=== PATIENT | female | born 1980 | race African-American/Black ===

== ENCOUNTER 2016-05-20 22:51 | Emergency (ER) | payer BC ==
[2016-05-21 00:59] LABS: ABSOLUTE EOSINOPHILS # (AUTO) 0.1 10^3/uL (0.0-0.6); ABSOLUTE LYMPHOCYTES (AUTO) 1.4 10^3/uL (0.5-4.7); ABSOLUTE MONOCYTES (AUTO) 0.6 10^3/uL (0.1-1.4); BASOPHILS % (AUTO) 0.7 % (0-2); EOSINOPHILS % (AUTO) 1.5 % (0-6); HEMOGLOBIN 13.3 g/dL (12.0-15.5); HGB HCT DIFFERENCE -0.1; LYMPHOCYTES % (AUTO) 22.4 % (13-45); MEAN CORPUSCULAR HEMOGLOBIN 30.8 pg (27.0-33.4); MEAN CORPUSCULAR HGB CONC 33.3 g/dL (32.0-36.0); MEAN CORPUSCULAR VOLUME 92 fl (80-97); MONOCYTES % (AUTO) 10.5 % (3-13); RED BLOOD COUNT 4.33 10^6/uL (3.72-5.28); RED CELL DISTRIBUTION WIDTH 12.8 % (11.5-14.0); SEGMENTED NEUTROPHILS % (AUTO) 64.9 % (42-78); WHITE BLOOD COUNT 6.1 10^3/uL (4.0-10.5)
[2016-05-21] MEDS ORDERED: ONDANSETRON 4 MG TAB.RAPDIS SL ONE (01:10)
--- NOTE | 2016-05-21 01:11 | ER Document Report ---
ED General - General Chief Complaint: Abdominal Pain Stated Complaint: ABDOMINAL PAIN Time seen by provider: 01:11 Mode of Arrival: Ambulatory Information source: Patient TRAVEL OUTSIDE OF THE [place] IN LAST 30 DAYS: No - HPI Patient complains to provider of: abdominal pain, back pain, nausea Onset: Just prior to arrival Onset/Duration: Sudden Quality of pain: Achy, Cramping Severity: Moderate Pain Level: 3 Associated symptoms: Body/muscle aches, Nonproductive cough, Nausea Exacerbated by: Denies Relieved by: Denies Similar symptoms previously: No Recently seen / treated by doctor: No Notes: Patient is a 36-year-old female presenting to the emergency room complaining of crampy abdominal pain, back pain, nausea, symptoms worsened after eating, she reports she's had multiple bowel movements throughout the day which were well- formed and not watery in nature, she is complaining of some pain in her right lower back shooting down her leg at times, dizziness, nasal congestion, nonproductive cough, she denies a fever, no pain or burning with urination but reports increased urinary frequency, she reports her was sick over the last week with similar symptoms - Related Data Allergies/Adverse Reactions: latex [Latex] Allergy (Severe, Verified 03/05/15 15:17) Hives hydrochlorothiazide [Hydrochlorothiazide] Allergy (Unknown, Verified 03/05/15 15 :17) Hives amoxicillin [Amoxicillin] Allergy (Verified 03/05/15 15:17) lisinopril [Lisinopril] Adverse Reaction (Unknown, Verified 03/05/15 15:17) Hives Past Medical History - General Information source: Patient - Social History Smoking Status: Never Smoker Family History: CAD, DM, Hyperlipidemia, Hypertension, Other - lupus Patient has suicidal ideation: No Patient has homicidal ideation: No - Past Medical History Cardiac Medical History: Reports: Hx Hypertension Denies: Hx Coronary Artery Disease, Hx Heart Attack Pulmonary Medical History: Reports: Hx Pneumonia Denies: Hx Asthma, Hx Bronchitis, Hx COPD Neurological Medical History: Reports: Hx Migraine. Denies: Hx Cerebrovascular Accident, Hx Seizures Endocrine Medical History: Denies: Hx Diabetes Mellitus Type 2, Hx Hypothyroidism Renal/ Medical History: Denies: Hx End Stage Renal Disease, Hx Peritoneal Dialysis, Hx Renal Insufficiency GI Medical History: Reports: Hx Gastritis, Hx Gastroesophageal Reflux Disease Musculoskeltal Medical History: Reports Hx Arthritis, Reports Hx Fibromyalgia Psychiatric Medical History: Reports: Hx Anxiety Past Surgical History: Reports: Hx Gynecologic Surgery - bilateral oophorectomy ; hysterectomy., Hx Hysterectomy - Immunizations Immunizations up to date: Yes Hx Diphtheria, Pertussis, Tetanus Vaccination: Yes Review of Systems - Review of Systems Constitutional: See HPI EENT: See HPI Cardiovascular: No symptoms reported Respiratory: See HPI Gastrointestinal: See HPI Genitourinary: See HPI Female Genitourinary: No symptoms reported Musculoskeletal: See HPI Skin: No symptoms reported Hematologic/Lymphatic: No symptoms reported Neurological/Psychological: No symptoms reported -: Yes All other systems reviewed and negative Physical Exam - Vital signs Interpretation: Normal - General General appearance: Appears well, Alert - HEENT Head: Normocephalic, Atraumatic Eyes: Normal Pupils: PERRL - Respiratory Respiratory status: No respiratory distress Chest status: Nontender Breath sounds: Normal Chest palpation: Normal - Cardiovascular Rhythm: Regular Heart sounds: Normal auscultation Murmur: No - Abdominal Inspection: Normal Distension: No distension Bowel sounds: Normal Tenderness: Tender - Mild diffuse Organomegaly: No organomegaly - Back Back: Tender - Right lumbar paraspinal muscle tenderness, negative straight leg raise - Extremities General upper extremity: Normal inspection, Nontender, Normal color, Normal ROM , Normal temperature General lower extremity: Normal inspection, Nontender, Normal color, Normal ROM , Normal temperature, Normal weight bearing. No: Clinton's sign - Neurological Neuro grossly intact: Yes Cognition: Normal Orientation: AAOx4 [place] Coma Scale Eye Opening: Spontaneous [place] Coma Scale Verbal: Oriented [place] Coma Scale Motor: Obeys Commands Oskar Coma Scale Total: 15 Speech: Normal Motor strength normal: LUE, RUE, LLE, RLE Sensory: Normal - Psychological Associated symptoms: Normal affect, Normal mood - Skin Skin Temperature: Warm Skin Moisture: Dry Skin Color: Normal Course - Re-evaluation Re-evalutation: 05/21/16 03:19 Patient with symptoms consistent with viral illness, ill with similar symptoms recently, she was given prescriptions for treatment of her symptoms and advised for supportive care and follow-up with her primary care provider, patient acknowledges understanding and agreement with this plan - Laboratory Result Diagrams: 05/21/16 00:37 05/21/16 00:37 Laboratory results interpreted by me: 05/21/16 00:52 Urine Blood MODERATE H Discharge - Discharge Clinical Impression: Nausea, Viral illness Abdominal pain Qualifiers: Abdominal location: generalized Qualified Code(s): R10.84 - Generalized abdominal pain Condition: Stable Disposition: HOME, SELF-CARE Instructions: Abdominal Pain ([facility]), Antinausea Medication ([facility]), Viral Syndrome ([facility]), Cough Suppressant & Expectorant Medications Additional Instructions: Follow up with your primary care provider in one to 2 days. Return to the emergency room immediately if symptoms worsen or any additional concerns. Prescriptions: Ondansetron [Zofran Odt 4 mg Tablet] 1 - 2 tab PO Q4H #20 tab.rapdis Phenylephrine HCl/Cod/Prometh [Promethazine Vc-Codeine Syrup] 5 ml PO Q6 #240 syrup
[2016-05-21 01:13] LABS: APPEARANCE,URINE CLEAR; BILIRUBIN,URINE NEGATIVE (NEGATIVE); GLUCOSE, URINE NEGATIVE (NEGATIVE); KETONES,URINE NEGATIVE (NEGATIVE); LEUKOCYTE ESTERASE,URINE NEGATIVE (NEGATIVE); NITRITE,URINE NEGATIVE (NEGATIVE); PROTEIN,URINE NEGATIVE (NEGATIVE); URINE SPECIFIC GRAVITY 1.019; UROBILINOGEN,URINE NEGATIVE mg/dL (<2.0)
[2016-05-21 01:20] LABS: ALANINE AMINOTRANSFERASE 24 U/L (9-52); ALBUMIN 4.5 g/dL (3.5-5.0); ALKALINE PHOSPHATASE 78 U/L (38-126); ANION GAP 13 (5-19); ASPARTATE AMINO TRANSFERASE 20 U/L (14-36); BILIRUBIN,TOTAL 0.5 mg/dL (0.2-1.3); BLOOD UREA NITROGEN 12 mg/dL (7-20); CALCIUM 9.3 mg/dL (8.4-10.2); CARBON DIOXIDE 27 mmol/L (22-30); CHLORIDE 102 mmol/L (98-107); CREATININE RESULT 0.89 mg/dL (0.52-1.25); GLUCOSE 90 mg/dL (75-110); LIPASE 51.5 U/L (23-300); POTASSIUM 4.1 mmol/L (3.6-5.0); SODIUM 141.6 mmol/L (137-145); TOTAL PROTEIN 7.9 g/dL (6.3-8.2)
[2016-05-21] MEDS ORDERED: ONDANSETRON ODT 4 MG TAB (6 TAB/DSPK) PO PRN (02:20)
[2016-05-21] MEDS ORDERED: BENZONATATE 100 MG CAPSULE PO ONE (02:20)
[2016-05-21 04:27] VITALS: BP 156/102
== END 2016-05-21 04:27 | disposition home or self-care (01) ==
LOC: ER 22:51
DX: R11.0 Nausea (principal); R10.84 Generalized abdominal pain; B34.9 Viral infection, unspecified; M54.9 Dorsalgia, unspecified; R42 Dizziness and giddiness; R09.81 Nasal congestion; R05 Cough; I10 Essential (primary) hypertension; Z91.040 Latex allergy status; Z88.0 Allergy status to penicillin; Z90.710 Acquired absence of both cervix and uterus
CPT/HCPCS: 99284; 36415; 83690; 84703; 85025; 80053; 81001; S0119

== ENCOUNTER 2016-06-30 21:34 | Emergency (ER) | payer SELFPAY ==
[2016-06-30 21:47] VITALS: BP 152/120
--- NOTE | 2016-06-30 21:52 | ER Document Report ---
ED Medical Screen (RME) - General Stated Complaint: NAUSEA/HEADACHE Mode of Arrival: Ambulatory Information source: Patient Notes: Pt presents to the ED for c/o NAIK, Ear pain, abdominal pain, low back pain. Reports taken multiple OTC meds without relief of symptoms. Denies f/ v/d but reports nausea. Just got over the flu. I have greeted and performed a rapid initial assessment of this patient. A comprehensive ED assessment and evaluation of the patient, analysis of test results and completion of the medical decision making process will be conducted by additional ED providers. TRAVEL OUTSIDE OF THE [place] IN LAST 30 DAYS: No - Related Data Allergies/Adverse Reactions: latex [Latex] Allergy (Severe, Verified 03/05/15 15:17) Hives hydrochlorothiazide [Hydrochlorothiazide] Allergy (Unknown, Verified 03/05/15 15 :17) Hives amoxicillin [Amoxicillin] Allergy (Verified 03/05/15 15:17) lisinopril [Lisinopril] Adverse Reaction (Unknown, Verified 03/05/15 15:17) Hives Past Medical History - Past Medical History Cardiac Medical History: Reports: Hx Hypertension Denies: Hx Coronary Artery Disease, Hx Heart Attack Pulmonary Medical History: Reports: Hx Pneumonia Denies: Hx Asthma, Hx Bronchitis, Hx COPD Neurological Medical History: Reports: Hx Migraine. Denies: Hx Cerebrovascular Accident, Hx Seizures Endocrine Medical History: Denies: Hx Diabetes Mellitus Type 2, Hx Hypothyroidism Renal/ Medical History: Denies: Hx End Stage Renal Disease, Hx Peritoneal Dialysis, Hx Renal Insufficiency GI Medical History: Reports: Hx Gastritis, Hx Gastroesophageal Reflux Disease Musculoskeltal Medical History: Reports Hx Arthritis, Reports Hx Fibromyalgia Psychiatric Medical History: Reports: Hx Anxiety Past Surgical History: Reports: Hx Gynecologic Surgery - bilateral oophorectomy ; hysterectomy., Hx Hysterectomy - Immunizations Immunizations up to date: Yes Hx Diphtheria, Pertussis, Tetanus Vaccination: Yes Physical Exam - Vital signs Vitals: Temp Pulse Resp BP Pulse Ox 97.8 F 76 20 152/120 H 100 06/30/16 21:46 06/30/16 21:46 06/30/16 21:46 06/30/16 21:46 06/30/16 21:46 Course - Vital Signs Vital signs: Temp Pulse Resp BP Pulse Ox 97.8 F 76 20 152/120 H 100 06/30/16 21:46 06/30/16 21:46 06/30/16 21:46 06/30/16 21:46 06/30/16 21:46
--- NOTE | 2016-06-30 22:29 | ER Document Report ---
ED General - General Chief Complaint: Headache >24 hrs old Stated Complaint: NAUSEA/HEADACHE Mode of Arrival: Ambulatory Notes: The patient is a 36-year-old female, past medical history sarcoidosis, fibromyalgia, presents with 3 days of sinus congestion and frontal frontal headache. She tried Tylenol and Motrin without much relief. She is also having intermittent abdominal cramping and has seen her [facility] for this. She denies nausea, vomiting, neck stiffness, fevers, difficulty swallowing, rash, urinary symptoms, diarrhea or constipation. TRAVEL OUTSIDE OF THE [place] IN LAST 30 DAYS: No - Related Data Allergies/Adverse Reactions: latex [Latex] Allergy (Severe, Verified 03/05/15 15:17) Hives hydrochlorothiazide [Hydrochlorothiazide] Allergy (Unknown, Verified 03/05/15 15 :17) Hives amlodipine [From Norvasc] Allergy (Verified 06/30/16 22:39) amoxicillin [Amoxicillin] Allergy (Verified 03/05/15 15:17) lisinopril [Lisinopril] Adverse Reaction (Unknown, Verified 03/05/15 15:17) Hives Past Medical History - General Information source: Patient - Social History Smoking Status: Never Smoker Chew tobacco use (# tins/day): No Frequency of alcohol use: None Drug Abuse: None Family History: CAD, DM, Hyperlipidemia, Hypertension, Other - lupus Patient has suicidal ideation: No Patient has homicidal ideation: No - Past Medical History Cardiac Medical History: Reports: Hx Hypertension Denies: Hx Coronary Artery Disease, Hx Heart Attack Pulmonary Medical History: Reports: Hx Pneumonia Denies: Hx Asthma, Hx Bronchitis, Hx COPD Neurological Medical History: Reports: Hx Migraine. Denies: Hx Cerebrovascular Accident, Hx Seizures Endocrine Medical History: Denies: Hx Diabetes Mellitus Type 2, Hx Hypothyroidism Renal/ Medical History: Denies: Hx End Stage Renal Disease, Hx Peritoneal Dialysis, Hx Renal Insufficiency GI Medical History: Reports: Hx Gastritis, Hx Gastroesophageal Reflux Disease Musculoskeltal Medical History: Reports Hx Arthritis, Reports Hx Fibromyalgia Psychiatric Medical History: Reports: Hx Anxiety Past Surgical History: Reports: Hx Gynecologic Surgery - bilateral oophorectomy ; hysterectomy., Hx Hysterectomy - Immunizations Immunizations up to date: Yes Hx Diphtheria, Pertussis, Tetanus Vaccination: Yes Review of Systems - Review of Systems Notes: REVIEW OF SYSTEMS: CONSTITUTIONAL: -fevers, -chills EENT: -eye pain, -difficulty swallowing, +nasal congestion CARDIOVASCULAR:-chest pain, -syncope. RESPIRATORY: -cough, -SOB GASTROINTESTINAL: -abdominal pain, -nausea, -vomiting, -diarrhea GENITOURINARY: -dysuria, -hematuria MUSCULOSKELETAL: -back pain, -neck pain SKIN: -rash or skin lesions. HEMATOLOGIC: -easy bruising or bleeding. LYMPHATIC: -swollen, enlarged glands. NEUROLOGICAL: -altered mental status or loss of consciousness, +headache, - neurologic symptoms PSYCHIATRIC: -anxiety, -depression. ALL OTHER SYSTEMS REVIEWED AND NEGATIVE. Physical Exam - Vital signs Vitals: Temp Pulse Resp BP Pulse Ox 97.8 F 76 20 152/120 H 100 06/30/16 21:46 06/30/16 21:46 06/30/16 21:46 06/30/16 21:46 06/30/16 21:46 - Notes Notes: PHYSICAL EXAMINATION: GENERAL: Well-appearing, well-nourished and in no acute distress. HEAD: Atraumatic, normocephalic. EYES: Pupils equal round and reactive to light, extraocular movements intact, sclera anicteric, conjunctiva are normal. ENT: nasal turbinate swelling, frontal sinus tenderness, nares patent, oropharynx clear without exudates. Moist mucous membranes. NECK: Normal range of motion, supple without lymphadenopathy LUNGS: Breath sounds clear to auscultation bilaterally and equal. No wheezes rales or rhonchi. HEART: Regular rate and rhythm without murmurs ABDOMEN: Soft, nontender, normoactive bowel sounds. No guarding, no rebound. No masses appreciated. EXTREMITIES: Normal range of motion, no pitting or edema. No cyanosis. NEUROLOGICAL: Cranial nerves grossly intact. Normal speech, normal gait. Normal sensory, motor, and reflex exams. PSYCH: Normal mood, normal affect. SKIN: Warm, Dry, normal turgor, no rashes or lesions noted. Course - Re-evaluation Re-evalutation: Patient appears well. Symptoms consistent with sinus congestion causing a dull frontal headache. Abdominal exam is completely nontender and labs and urine are unremarkable. Abdominal pain is chronic in nature. Struck to patient about treatment with Flonase, Claritin and sinus rinses. Also told her to follow-up with her manager code for further evaluation and treatment. She says she will take her evening dose of clonidine when she gets home. - Vital Signs Vital signs: Temp Pulse Resp BP Pulse Ox 97.8 F 76 20 152/120 H 100 06/30/16 21:46 06/30/16 21:46 06/30/16 21:46 06/30/16 21:46 06/30/16 21:46 - Laboratory Result Diagrams: 06/30/16 23:10 06/30/16 22:01 Laboratory results interpreted by me: 06/30/16 22:01 Carbon Dioxide 32 H Discharge - Discharge Clinical Impression: Sinus congestion, Frontal headache Condition: Good Disposition: HOME, SELF-CARE Additional Instructions: HEADACHE: The physician does not feel that the headache you are experiencing has a serious underlying cause. Most headaches are due to emotional stress, with resultant muscle tension (tension headache). Occasionally, headaches are secondary to changes in the blood vessels of the scalp (vascular headache and migraine headache). Sometimes, a headache is the first symptom of another developing illness, such as a viral infection. You have no evidence of stroke, bleeding, meningitis, or other serious cause of your headache. The treatment of headaches varies with the severity and cause of the pain. Not all headaches need pain shots. In fact, there is evidence that using narcotics for headaches may make them worse in the long run. The physician will determine the therapy that's in your best interest. If you develop a fever, if the headache is different from any you've previously experienced, or if the headache progressively worsens, then call your physician at once or go to the emergency room. FOLLOW-UP CARE: If you have been referred to a physician for follow-up care, call the physician s office for an appointment as you were instructed or within the next two days. If you experience worsening or a significant change in your symptoms, notify the physician immediately or return to the Emergency Department at any time for re-evaluation. Sinusitis You have sinusitis, an infection of the sinus cavities of the face. The sinuses are air-filled chambers which open into the inside of the nose. Bacteria and pus fill a sinus, causing pain, drainage, and fever. Sinusitis is treated with antibiotics. Often, expectorants (to thin the sinus mucous) or decongestants (to reduce swelling) are prescribed as well. Healing requires seven to 10 days. Avoid chemical fumes, pollens, dusts, and smoke (especially cigarette smoke ). Keep the air humidified in your bedroom and work area and take plenty of liquids by mouth. This condition can be serious if the infection spreads. If your symptoms worsen, or if you develop severe headache, high fever, stiff neck, or a rash, you must call the doctor or return for re-evaluation. Prescriptions: Fluticasone Propionate [Flonase Nasal [place] 50 Mcg/[place] 16 gm] 2 sprays NASL Q12 #1 inhaler Forms: Elevated Blood Pressure
[2016-06-30 22:38] LABS: APPEARANCE,URINE CLEAR; BILIRUBIN,URINE NEGATIVE (NEGATIVE); GLUCOSE, URINE NEGATIVE (NEGATIVE); KETONES,URINE NEGATIVE (NEGATIVE); LEUKOCYTE ESTERASE,URINE NEGATIVE (NEGATIVE); NITRITE,URINE NEGATIVE (NEGATIVE); PROTEIN,URINE NEGATIVE (NEGATIVE); URINE SPECIFIC GRAVITY 1.013; UROBILINOGEN,URINE NEGATIVE mg/dL (<2.0)
[2016-06-30] MEDS ORDERED: IBUPROFEN 600 MG TABLET PO ONE (22:42)
[2016-06-30 22:58] LABS: ALANINE AMINOTRANSFERASE 37 U/L (9-52); ALBUMIN 4.6 g/dL (3.5-5.0); ALKALINE PHOSPHATASE 88 U/L (38-126); ANION GAP 11 (5-19); ASPARTATE AMINO TRANSFERASE 21 U/L (14-36); BILIRUBIN,TOTAL 0.6 mg/dL (0.2-1.3); BLOOD UREA NITROGEN 16 mg/dL (7-20); CALCIUM 9.6 mg/dL (8.4-10.2); CARBON DIOXIDE 32 mmol/L (22-30); CHLORIDE 99 mmol/L (98-107); CREATININE RESULT 0.83 mg/dL (0.52-1.25); GLUCOSE 98 mg/dL (75-110); POTASSIUM 3.8 mmol/L (3.6-5.0); SODIUM 141.9 mmol/L (137-145); TOTAL PROTEIN 8.2 g/dL (6.3-8.2)
[2016-06-30 23:23] LABS: ABSOLUTE BASOPHILS # (AUTO) 0.1 10^3/uL (0.0-0.2); ABSOLUTE EOSINOPHILS # (AUTO) 0.1 10^3/uL (0.0-0.6); ABSOLUTE LYMPHOCYTES (AUTO) 1.8 10^3/uL (0.5-4.7); ABSOLUTE MONOCYTES (AUTO) 0.6 10^3/uL (0.1-1.4); ABSOLUTE NEUT (AUTO) 3.4 10^3/uL (1.7-8.2); BASOPHILS % (AUTO) 1.1 % (0-2); EOSINOPHILS % (AUTO) 1.5 % (0-6); HEMATOCRIT 38.9 % (36.0-47.0); HEMOGLOBIN 13.5 g/dL (12.0-15.5); HGB HCT DIFFERENCE 1.6; LYMPHOCYTES % (AUTO) 30.3 % (13-45); MEAN CORPUSCULAR HEMOGLOBIN 30.9 pg (27.0-33.4); MEAN CORPUSCULAR HGB CONC 34.7 g/dL (32.0-36.0); MEAN CORPUSCULAR VOLUME 89 fl (80-97); RED BLOOD COUNT 4.37 10^6/uL (3.72-5.28); SEGMENTED NEUTROPHILS % (AUTO) 57.1 % (42-78); WHITE BLOOD COUNT 5.9 10^3/uL (4.0-10.5)
[2016-06-30] MEDS ORDERED: CETIRIZINE 10 MG TABLET PO ONE (23:55)
== END 2016-07-01 00:01 | disposition home or self-care (01) ==
LOC: ER 21:34
DX: R51 Headache (principal); R09.81 Nasal congestion; R11.0 Nausea; M79.7 Fibromyalgia; I10 Essential (primary) hypertension; Z91.040 Latex allergy status; Z88.0 Allergy status to penicillin; Z90.710 Acquired absence of both cervix and uterus
CPT/HCPCS: 36415; 80053; 81001; 81025; 85025; 99283

== ENCOUNTER 2016-07-31 00:20 | Emergency (ER) | payer MEDICAID ==
[2016-07-31] MEDS ORDERED: ONDANSETRON HCL INJ/PF 4 MG/2 ML SDV IV ONE (05:43)
[2016-07-31] MEDS ORDERED: PROCHLORPERAZINE EDISYLATE INJ 10 MG/2 ML VIAL IV ONE (06:20)
[2016-07-31] MEDS ORDERED: DIPHENHYDRAMINE HCL 50 MG/ML VIAL IV ONE (06:20)
[2016-07-31 06:57] LABS: ABSOLUTE BASOPHILS # (AUTO) 0.1 10^3/uL (0.0-0.2); ABSOLUTE LYMPHOCYTES (AUTO) 1.5 10^3/uL (0.5-4.7); ABSOLUTE MONOCYTES (AUTO) 0.5 10^3/uL (0.1-1.4); EOSINOPHILS % (AUTO) 0.4 % (0-6); HEMATOCRIT 40.1 % (36.0-47.0); HEMOGLOBIN 13.7 g/dL (12.0-15.5); LYMPHOCYTES % (AUTO) 21.3 % (13-45); MEAN CORPUSCULAR HEMOGLOBIN 30.4 pg (27.0-33.4); MEAN CORPUSCULAR HGB CONC 34.2 g/dL (32.0-36.0); MEAN CORPUSCULAR VOLUME 89 fl (80-97); MONOCYTES % (AUTO) 7.4 % (3-13); RED BLOOD COUNT 4.51 10^6/uL (3.72-5.28); RED CELL DISTRIBUTION WIDTH 13.5 % (11.5-14.0); SEGMENTED NEUTROPHILS % (AUTO) 69.9 % (42-78); WHITE BLOOD COUNT 7.1 10^3/uL (4.0-10.5)
[2016-07-31 07:03] LABS: AMORPHOUS SEDIMENT,URINE TRACE /HPF; APPEARANCE,URINE CLOUDY; BILIRUBIN,URINE NEGATIVE (NEGATIVE); GLUCOSE, URINE NEGATIVE (NEGATIVE); KETONES,URINE NEGATIVE (NEGATIVE); LEUKOCYTE ESTERASE,URINE NEGATIVE (NEGATIVE); NITRITE,URINE NEGATIVE (NEGATIVE); PROTEIN,URINE NEGATIVE (NEGATIVE); URINE SPECIFIC GRAVITY 1.013; UROBILINOGEN,URINE NEGATIVE mg/dL (<2.0)
--- NOTE | 2016-07-31 07:11 | ER Document Report ---
ED General - General Chief Complaint: Headache, nausea, dizziness Stated Complaint: HEADACHE Mode of Arrival: Ambulatory Information source: Patient Notes: 36-year-old female presents with a list of complaints. Patient notes she is having headaches nausea abdominal pain back pain high blood pressure dizzy palpitations. Denies any fevers or chills nausea vomiting TRAVEL OUTSIDE OF THE [place] IN LAST 30 DAYS: No - HPI Onset: Just prior to arrival Onset/Duration: Sudden Quality of pain: Achy Severity: Mild Pain Level: 1 Associated symptoms: Body/muscle aches, Headache, Nausea Exacerbated by: Denies Relieved by: Denies Similar symptoms previously: Yes Recently seen / treated by doctor: Yes - Related Data Allergies/Adverse Reactions: latex [Latex] Allergy (Severe, Verified 03/05/15 15:17) Hives hydrochlorothiazide [Hydrochlorothiazide] Allergy (Unknown, Verified 03/05/15 15 :17) Hives amlodipine [From Norvasc] Allergy (Verified 06/30/16 22:39) amoxicillin [Amoxicillin] Allergy (Verified 03/05/15 15:17) lisinopril [Lisinopril] Adverse Reaction (Unknown, Verified 03/05/15 15:17) Hives Past Medical History - Social History Smoking Status: Never Smoker Cigarette use (# per day): No Chew tobacco use (# tins/day): No Smoking Education Provided: No Family History: CAD, DM, Hyperlipidemia, Hypertension, Other - lupus - Past Medical History Cardiac Medical History: Reports: Hx Hypertension Denies: Hx Coronary Artery Disease, Hx Heart Attack Pulmonary Medical History: Reports: Hx Pneumonia Denies: Hx Asthma, Hx Bronchitis, Hx COPD Neurological Medical History: Reports: Hx Migraine. Denies: Hx Cerebrovascular Accident, Hx Seizures Endocrine Medical History: Denies: Hx Diabetes Mellitus Type 2, Hx Hypothyroidism Renal/ Medical History: Denies: Hx End Stage Renal Disease, Hx Peritoneal Dialysis, Hx Renal Insufficiency GI Medical History: Reports: Hx Gastritis, Hx Gastroesophageal Reflux Disease Musculoskeltal Medical History: Reports Hx Arthritis, Reports Hx Fibromyalgia Psychiatric Medical History: Reports: Hx Anxiety Past Surgical History: Reports: Hx Gynecologic Surgery - bilateral oophorectomy ; hysterectomy., Hx Hysterectomy - Immunizations Immunizations up to date: Yes Hx Diphtheria, Pertussis, Tetanus Vaccination: Yes Review of Systems - Review of Systems Notes: REVIEW OF SYSTEMS: CONSTITUTIONAL : Denies fever, chills, or sweats. Denies recent illness. EENT: Denies eye, ear, throat, or mouth pain or symptoms. Denies nasal or sinus congestion or discharge. Denies throat, tongue, or mouth swelling or difficulty swallowing. CARDIOVASCULAR: Denies chest pain. Denies palpitations or racing or irregular heart beat. Denies ankle edema. RESPIRATORY: Denies cough, cold, or chest congestion. Denies shortness of breath, difficulty breathing, or wheezing. GASTROINTESTINAL: Admits to abdominal pain nausea GENITOURINARY: Admits to burning on urination and urinary frequency FEMALE GENITOURINARY: Denies vaginal bleeding, heavy or abnormal periods, irregular periods. Denies vaginal discharge or odor. MUSCULOSKELETAL: Denies back or neck pain or stiffness. Denies joint pain or swelling. SKIN: Denies rash, lesions or sores. HEMATOLOGIC : Denies easy bruising or bleeding. LYMPHATIC: Denies swollen, enlarged glands. NEUROLOGICAL: Admits to headache PSYCHIATRIC: Denies anxiety or stress. Denies depression, suicidal ideation, or homicidal ideation. ALL OTHER SYSTEMS REVIEWED AND NEGATIVE. Dictation was performed using [employer] voice recognition software PHYSICAL EXAMINATION: GENERAL: Well-appearing, well-nourished and in no acute distress. HEAD: Atraumatic, normocephalic. EYES: Pupils equal round and reactive to light, extraocular movements intact, conjunctiva are normal. ENT: Nares patent, oropharynx clear without exudates. Moist mucous membranes. NECK: Normal range of motion, supple without lymphadenopathy LUNGS: Breath sounds clear to auscultation bilaterally and equal. No wheezes rales or rhonchi. HEART: Regular rate and rhythm without murmurs ABDOMEN: Soft, nontender, nondistended abdomen. No guarding, no rebound. No masses appreciated. Female : deferred Musculoskeletal: Normal range of motion, no pitting or edema. No cyanosis. NEUROLOGICAL: Cranial nerves grossly intact. Normal speech, normal gait. Normal sensory, motor exams PSYCH: Normal mood, normal affect. SKIN: Warm, Dry, normal turgor, no rashes or lesions noted. Physical Exam - Vital signs Vitals: Temp Pulse Resp BP Pulse Ox 98.3 F 103 H 16 139/98 H 99 07/31/16 01:02 07/31/16 01:02 07/31/16 01:02 07/31/16 01:02 07/31/16 01:02 Course - Re-evaluation Re-evalutation: 07/31/16 07:11 Patient has extensive list of complaints, however she is resting comfortably in no distress does not appear to have any life-threatening issues. She was sleeping when I saw her was awake and states she cannot sleep 07/31/16 07:39 Lab work imaging note no significant abnormality patient is sleeping again I will discharge her home at this time to follow-up with primary care physician I believe her initial headache was secondary to her blood pressure which was initially elevated and then herself her symptoms are secondary to her medications After performing a Medical Screening Examination, I estimate there is LOW risk for ACUTE GLAUCOMA, TEMPORAL ARTERITIS, MENINGITIS, INCRANIAL HEMORRHAGE, or ISCHEMIC STROKE thus I consider the discharge disposition reasonable. The patient and I have discussed the diagnosis and risks, and we agree with discharging home with close follow-up with the understanding that symptoms and presentations can change. We also discussed returning to the Emergency Department immediately if new or worsening symptoms occur. We have discussed the symptoms which are most concerning (e.g., changing or worsening symptoms, new numbness or weakness, vomiting, fever) that necessitate immediate return. - Vital Signs Vital signs: Temp Pulse Resp BP Pulse Ox 98.3 F 103 H 16 139/98 H 99 07/31/16 01:02 07/31/16 01:02 07/31/16 01:02 07/31/16 01:02 07/31/16 01:02 - Laboratory Result Diagrams: 07/31/16 06:49 07/31/16 06:49 Laboratory results interpreted by me: 07/31/16 06:49 Glucose 122 H Total Protein 8.5 H - Diagnostic Test Radiology reviewed: Image reviewed, Reports reviewed Discharge - Discharge Clinical Impression: Medication reaction Headache Qualifiers: Headache type: unspecified Headache chronicity pattern: acute headache Intractability: not intractable Qualified Code(s): R51 - Headache Hypertension Qualifiers: Hypertension type: essential hypertension Qualified Code(s): I10 - Essential ( primary) hypertension Condition: Stable Disposition: HOME, SELF-CARE Instructions: Headache ([facility]) Additional Instructions: Follow up with your physician tomorrow for further care or return to the ED IMMEDIATELY if symptoms worsen or new concerns occur
[2016-07-31 07:22] LABS: ALANINE AMINOTRANSFERASE 40 U/L (9-52); ALBUMIN 4.6 g/dL (3.5-5.0); ALKALINE PHOSPHATASE 91 U/L (38-126); ANION GAP 12 (5-19); ASPARTATE AMINO TRANSFERASE 28 U/L (14-36); BILIRUBIN,DIRECT 0.2 mg/dL (0.0-0.4); BILIRUBIN,TOTAL 0.5 mg/dL (0.2-1.3); BLOOD UREA NITROGEN 14 mg/dL (7-20); CALCIUM 9.8 mg/dL (8.4-10.2); CARBON DIOXIDE 29 mmol/L (22-30); CHLORIDE 98 mmol/L (98-107); CREATININE RESULT 0.56 mg/dL (0.52-1.25); GLUCOSE 122 mg/dL (75-110); POTASSIUM 3.9 mmol/L (3.6-5.0); SODIUM 138.7 mmol/L (137-145); TOTAL PROTEIN 8.5 g/dL (6.3-8.2)
[2016-07-31 08:10] VITALS: BP 141/86
--- NOTE | 2016-07-31 09:31 | EKG REPORT ---
SEVERITY:- BORDERLINE ECG - SINUS TACHYCARDIA BORDERLINE PROLONGED QT INTERVAL : Confirmed by: Fletcher Diaz 31-Jul-2016 09:30:56
== END 2016-07-31 08:10 | disposition home or self-care (01) ==
LOC: ER 00:20
DX: T50.905A Adverse effect of unspecified drugs, medicaments and biological substances, initial encounter (principal); R51 Headache; R11.0 Nausea; R42 Dizziness and giddiness; R10.9 Unspecified abdominal pain; I10 Essential (primary) hypertension
CPT/HCPCS: 93005; 99284; 96374; 96375; 36415; 85025; 81025; 80053; 81001; 70450; 93010; J1200; J0780; J2405

== ENCOUNTER 2018-07-13 14:36 | Emergency (ER) | payer BC, MEDICAID ==
[2018-07-13] MEDS ORDERED: CLONIDINE HCL 0.2 MG TABLET PO ONE (14:57)
--- NOTE | 2018-07-13 14:59 | ER Document Report ---
ED Medical Screen (RME) - General Chief Complaint: Headache Stated Complaint: HEADACHE,NAUSEA,RIGHT EAR PAIN Time Seen by Provider: 07/13/18 14:57 Mode of Arrival: Ambulatory Information source: Patient TRAVEL OUTSIDE OF THE [place] IN LAST 30 DAYS: No - HPI Patient complains to provider of: NAIK, sweating Onset: Other - pt with multiple c/o including NAIK, insomnia, BP elevated, nausea and bloated feeling for the past several days. - Related Data Allergies/Adverse Reactions: latex [Latex] Allergy (Severe, Verified 07/13/18 14:58) Hives hydrochlorothiazide [Hydrochlorothiazide] Allergy (Unknown, Verified 07/13/18 14:58) Hives amlodipine [From Norvasc] Allergy (Verified 07/13/18 14:58) amoxicillin [Amoxicillin] Allergy (Verified 07/13/18 14:58) lisinopril [Lisinopril] Adverse Reaction (Unknown, Verified 07/13/18 14:58) Hives Past Medical History - Past Medical History Cardiac Medical History: Reports: Hx Hypertension Denies: Hx Coronary Artery Disease, Hx Heart Attack Pulmonary Medical History: Reports: Hx Pneumonia Denies: Hx Asthma, Hx Bronchitis, Hx COPD Neurological Medical History: Reports: Hx Migraine. Denies: Hx Cerebrovascular Accident, Hx Seizures Endocrine Medical History: Denies: Hx Diabetes Mellitus Type 2, Hx Hypothyroidism Renal/ Medical History: Denies: Hx End Stage Renal Disease, Hx Peritoneal Dialysis, Hx Renal Insufficiency GI Medical History: Reports: Hx Gastritis, Hx Gastroesophageal Reflux Disease Musculoskeltal Medical History: Reports Hx Arthritis, Reports Hx Fibromyalgia Psychiatric Medical History: Reports: Hx Anxiety Past Surgical History: Reports: Hx Gynecologic Surgery - bilateral oophorectomy; hysterectomy., Hx Hysterectomy - Immunizations Immunizations up to date: Yes Hx Diphtheria, Pertussis, Tetanus Vaccination: Yes Physical Exam - Vital signs Vitals: Temp Pulse Resp BP Pulse Ox 98.7 F 87 16 231/149 H 99 07/13/18 14:47 07/13/18 14:47 07/13/18 14:47 07/13/18 14:47 07/13/18 14:47 Course - Vital Signs Vital signs: Temp Pulse Resp BP Pulse Ox 98.7 F 87 16 231/149 H 99 07/13/18 14:47 07/13/18 14:47 07/13/18 14:47 07/13/18 14:47 07/13/18 14:47
[2018-07-13 15:47] LABS: ABSOLUTE LYMPHOCYTES (AUTO) 1.6 10^3/uL (0.5-4.7); ABSOLUTE MONOCYTES (AUTO) 0.4 10^3/uL (0.1-1.4); ABSOLUTE NEUT (AUTO) 3.6 10^3/uL (1.7-8.2); BASOPHILS % (AUTO) 0.6 % (0-2); EOSINOPHILS % (AUTO) 0.3 % (0-6); HEMATOCRIT 41.9 % (36.0-47.0); HEMOGLOBIN 14.7 g/dL (12.0-15.5); LYMPHOCYTES % (AUTO) 28.6 % (13-45); MEAN CORPUSCULAR HEMOGLOBIN 30.6 pg (27.0-33.4); MEAN CORPUSCULAR HGB CONC 35.1 g/dL (32.0-36.0); MEAN CORPUSCULAR VOLUME 87 fl (80-97); MONOCYTES % (AUTO) 7.1 % (3-13); PLATELET COUNT 297 10^3/uL (150-450); RED BLOOD COUNT 4.81 10^6/uL (3.72-5.28); RED CELL DISTRIBUTION WIDTH 14.1 % (11.5-14.0); SEGMENTED NEUTROPHILS % (AUTO) 63.4 % (42-78); TOTAL CELLS COUNTED % (AUTO) 100 %; WHITE BLOOD COUNT 5.7 10^3/uL (4.0-10.5)
[2018-07-13 17:08] LABS: APPEARANCE,URINE SLIGHTLY-CLOUDY; BILIRUBIN,URINE NEGATIVE (NEGATIVE); CALCIUM OXALATE CRYSTALS,URINE FEW /HPF; COLOR,URINE YELLOW; GLUCOSE, URINE NEGATIVE (NEGATIVE); KETONES,URINE NEGATIVE (NEGATIVE); LEUKOCYTE ESTERASE,URINE NEGATIVE (NEGATIVE); NITRITE,URINE NEGATIVE (NEGATIVE); PROTEIN,URINE 100 mg/dL (NEGATIVE); URINE SPECIFIC GRAVITY 1.024; UROBILINOGEN,URINE NEGATIVE mg/dL (<2.0)
[2018-07-13 17:58] LABS: ALANINE AMINOTRANSFERASE 22 U/L (9-52); ALBUMIN 4.6 g/dL (3.5-5.0); ALKALINE PHOSPHATASE 89 U/L (38-126); ANION GAP 10 (5-19); ASPARTATE AMINO TRANSFERASE 19 U/L (14-36); BILIRUBIN,DIRECT 0.1 mg/dL (0.0-0.4); BILIRUBIN,TOTAL 0.4 mg/dL (0.2-1.3); BLOOD UREA NITROGEN 12 mg/dL (7-20); CALCIUM 9.6 mg/dL (8.4-10.2); CARBON DIOXIDE 29 mmol/L (22-30); CHLORIDE 98 mmol/L (98-107); GLUCOSE 109 mg/dL (75-110); POTASSIUM 3.6 mmol/L (3.6-5.0); SODIUM 137.4 mmol/L (137-145); TOTAL PROTEIN 8.2 g/dL (6.3-8.2)
--- NOTE | 2018-07-13 18:19 | ER Document Report ---
ED General - General Chief Complaint: Headache Stated Complaint: HEADACHE,NAUSEA,RIGHT EAR PAIN Time Seen by Provider: 07/13/18 14:57 Primary Care Provider: GIL HAIRSTON FNP-C [Primary Care Provider] - Follow up as needed Mode of Arrival: Ambulatory Information source: Patient Notes: Pt is a 38 year old female who presents to the ER today with more than 7 compla ints including: Sweating, bloating, nausea, right ear pain, lower left abdominal pain that occurred briefly today but subsided, right flank pain that occurred briefly today but subsided, burning with urination for the past 3 days. She states that she ran out of her estradiol patch for her menopausal symptoms after complete hysterectomy, she states that's when the sweating and bloating started. TRAVEL OUTSIDE OF THE [place] IN LAST 30 DAYS: No - Related Data Allergies/Adverse Reactions: latex [Latex] Allergy (Severe, Verified 07/13/18 14:58) Hives hydrochlorothiazide [Hydrochlorothiazide] Allergy (Unknown, Verified 07/13/18 1 4:58) Hives amlodipine [From Norvasc] Allergy (Verified 07/13/18 14:58) amoxicillin [Amoxicillin] Allergy (Verified 07/13/18 14:58) lisinopril [Lisinopril] Adverse Reaction (Unknown, Verified 07/13/18 14:58) Hives Past Medical History - General Information source: Patient - Social History Smoking Status: Never Smoker Family History: CAD, DM, Hyperlipidemia, Hypertension, Other - lupus Patient has suicidal ideation: No Patient has homicidal ideation: No - Past Medical History Cardiac Medical History: Reports: Hx Hypertension Denies: Hx Coronary Artery Disease, Hx Heart Attack Pulmonary Medical History: Reports: Hx Pneumonia Denies: Hx Asthma, Hx Bronchitis, Hx COPD Neurological Medical History: Reports: Hx Migraine. Denies: Hx Cerebrovascular Accident, Hx Seizures Endocrine Medical History: Denies: Hx Diabetes Mellitus Type 2, Hx Hypothyroidism Renal/ Medical History: Denies: Hx End Stage Renal Disease, Hx Peritoneal Dialysis, Hx Renal Insufficiency GI Medical History: Reports: Hx Gastritis, Hx Gastroesophageal Reflux Disease Musculoskeletal Medical History: Reports Hx Arthritis, Reports Hx Fibromyalgia Psychiatric Medical History: Reports: Hx Anxiety Past Surgical History: Reports: Hx Gynecologic Surgery - bilateral oophorectomy; hysterectomy., Hx Hysterectomy - Immunizations Immunizations up to date: Yes Hx Diphtheria, Pertussis, Tetanus Vaccination: Yes Review of Systems - Review of Systems Constitutional: See HPI EENT: See HPI Cardiovascular: No symptoms reported Respiratory: No symptoms reported Gastrointestinal: See HPI Genitourinary: See HPI Female Genitourinary: See HPI Musculoskeletal: No symptoms reported Skin: No symptoms reported Hematologic/Lymphatic: No symptoms reported Neurological/Psychological: No symptoms reported Physical Exam - Vital signs Vitals: Temp Pulse Resp BP Pulse Ox 98.7 F 87 16 231/149 H 99 07/13/18 14:47 07/13/18 14:47 07/13/18 14:47 07/13/18 14:47 07/13/18 14:47 - Notes Notes: PHYSICAL EXAMINATION: GENERAL: Well-appearing and in no acute distress. HEAD: Atraumatic, normocephalic. EYES: Pupils equal round and reactive to light, extraocular movements intact, sclera anicteric, conjunctiva are normal. NECK: Normal range of motion, supple without lymphadenopathy LUNGS: CTAB and equal. No wheezes rales or rhonchi. HEART: Regular rate and rhythm without murmurs ABDOMEN: Soft, no tenderness. No guarding, no rebound BACK: no vertebral tenderness, normal ROM GI/: no CVA tenderness EXTREMITIES: Normal range of motion, no pitting edema. No cyanosis. NEUROLOGICAL: Cranial nerves grossly intact. Normal sensory/motor exams. PSYCH: Normal mood, normal affect. SKIN: Warm, Dry, normal turgor, no rashes or lesions noted Course - Re-evaluation Re-evalutation: 07/13/18 19:15 Pt is not diaphoretic, clammy, I see no evidence of distress, labs are all normal, urine negative for infection, pt keeps coming up with more complaints, on discharge she sends the nurse to ask me if I can go talk to her about a new complaint of a "knot" on her arm. At this point there is nothing emergent going on with this patient, I refilled her estradiol patches and told her to follow up with her pcp. She is upset about this. - Vital Signs Vital signs: Temp Pulse Resp BP Pulse Ox 98.6 F 61 16 154/111 H 100 07/13/18 18:24 07/13/18 18:24 07/13/18 14:47 07/13/18 18:24 07/13/18 18:24 - Laboratory Result Diagrams: 07/13/18 15:20 07/13/18 17:20 Laboratory results interpreted by me: 07/13/18 07/13/18 15:15 15:20 RDW 14.1 H Urine Protein 100 H Urine Blood SMALL H Discharge - Discharge Clinical Impression: Menopausal symptoms Condition: Stable Disposition: HOME, SELF-CARE Additional Instructions: Return immediately for any new or worsening symptoms. Follow up with [facility], call tomorrow to make followup appointment. Referrals: GIL HAIRSTON, [facility]-C [Primary Care Provider] - Follow up as needed
[2018-07-13 18:27] VITALS: BP 154/111
== END 2018-07-13 18:28 | disposition home or self-care (01) ==
LOC: ER 14:36
DX: N95.1 Menopausal and female climacteric states (principal); R51 Headache; R11.0 Nausea; H92.01 Otalgia, right ear; R61 Generalized hyperhidrosis; R14.0 Abdominal distension (gaseous); R10.32 Left lower quadrant pain; I10 Essential (primary) hypertension
CPT/HCPCS: 36415; 80053; 81001; 81025; 85025; 99283

== ENCOUNTER 2018-10-18 14:55 | Emergency (ER) | payer BC ==
[2018-10-18] MEDS ORDERED: MAG HYDROX/AL HYDROX/SIMETH SUSP 30 ML UDCUP PO ONE (15:28)
[2018-10-18] MEDS ORDERED: METOCLOPRAMIDE HCL ORAL SOLN 10 MG/10 ML UDCUP PO ONE (15:28)
[2018-10-18] MEDS ORDERED: LIDOCAINE 2% VISCOUS SOLN 20 ML UDCUP PO ONE (15:28)
--- NOTE | 2018-10-18 15:30 | ER Document Report ---
ED Medical Screen (RME) - General Chief Complaint: Chest Pain Stated Complaint: CHEST PAIN Time Seen by Provider: 10/18/18 15:21 Primary Care Provider: YAMILET KYLE FNP-C [Primary Care Provider] - Follow up as needed Mode of Arrival: Ambulatory Information source: Patient Notes: Patient presents emergency department with chest pain. Reports she was placed on clonidine for high blood pressure on Saturday. She started taking and having chest pain. She has not taken any since yesterday still having chest pain. Denies trauma. Denies other symptoms such as fever vomiting diarrhea. Reports when she eats it feels like she is hurting in her esophagus. Denies history of cardiac disease but reports sarcoidosis, fibromyalgia hypertension. Reports when she coughs she has been spitting up sputum. Denies trouble laying down. Reports urinary frequency on and off since Saturday. Respiratory rate even unlabored clear, complains of pain when chest wall is palpated. Good airway. I have greeted and performed a rapid initial assessment of this patient. A comprehensive ED assessment and evaluation of the patient, analysis of test results and completion of the medical decision making process will be conducted by additional ED providers. Dictation of this chart was performed using voice recognition software; therefore, there may be some unintended grammatical errors. TRAVEL OUTSIDE OF THE [place] IN LAST 30 DAYS: No - Related Data Allergies/Adverse Reactions: latex [Latex] Allergy (Severe, Verified 10/18/18 14:56) Hives hydrochlorothiazide [Hydrochlorothiazide] Allergy (Unknown, Verified 10/18/18 14:56) Hives amlodipine [From Norvasc] Allergy (Verified 10/18/18 14:56) amoxicillin [Amoxicillin] Allergy (Verified 10/18/18 14:56) lisinopril [Lisinopril] Adverse Reaction (Unknown, Verified 10/18/18 14:56) Hives Past Medical History - Past Medical History Cardiac Medical History: Reports: Hx Hypertension Denies: Hx Coronary Artery Disease, Hx Heart Attack Pulmonary Medical History: Reports: Hx Pneumonia Denies: Hx Asthma, Hx Bronchitis, Hx COPD Neurological Medical History: Reports: Hx Migraine. Denies: Hx Cerebrovascular Accident, Hx Seizures Endocrine Medical History: Denies: Hx Diabetes Mellitus Type 2, Hx Hypothyroidism Renal/ Medical History: Denies: Hx End Stage Renal Disease, Hx Peritoneal Dialysis, Hx Renal Insufficiency GI Medical History: Reports: Hx Gastritis, Hx Gastroesophageal Reflux Disease Musculoskeltal Medical History: Reports Hx Arthritis, Reports Hx Fibromyalgia Psychiatric Medical History: Reports: Hx Anxiety Past Surgical History: Reports: Hx Gynecologic Surgery - bilateral oophorectomy; hysterectomy., Hx Hysterectomy - Immunizations Immunizations up to date: Yes Hx Diphtheria, Pertussis, Tetanus Vaccination: Yes Physical Exam - Vital signs Vitals: Temp Pulse Resp BP Pulse Ox 97.9 F 85 18 162/109 H 97 10/18/18 15:15 10/18/18 15:15 10/18/18 15:15 10/18/18 15:15 10/18/18 15:15 Course - Vital Signs Vital signs: Temp Pulse Resp BP Pulse Ox 97.9 F 85 18 162/109 H 97 10/18/18 15:15 10/18/18 15:15 10/18/18 15:15 10/18/18 15:15 10/18/18 15:15 Doctor's Discharge - Discharge Referrals: YAMILET KYLE, DIRECTOR SOCIAL SERVICE-C [Primary Care Provider] - Follow up as needed
[2018-10-18 15:51] LABS: ABSOLUTE EOSINOPHILS # (AUTO) 0.1 10^3/uL (0.0-0.6); ABSOLUTE LYMPHOCYTES (AUTO) 1.8 10^3/uL (0.5-4.7); ABSOLUTE MONOCYTES (AUTO) 0.5 10^3/uL (0.1-1.4); ABSOLUTE NEUT (AUTO) 1.6 10^3/uL (1.7-8.2); BASOPHILS % (AUTO) 0.7 % (0-2); EOSINOPHILS % (AUTO) 2.6 % (0-6); HEMATOCRIT 38.9 % (36.0-47.0); HEMOGLOBIN 13.3 g/dL (12.0-15.5); LYMPHOCYTES % (AUTO) 43.9 % (13-45); MEAN CORPUSCULAR HEMOGLOBIN 30.3 pg (27.0-33.4); MEAN CORPUSCULAR HGB CONC 34.3 g/dL (32.0-36.0); MEAN CORPUSCULAR VOLUME 88 fl (80-97); MONOCYTES % (AUTO) 12.6 % (3-13); PLATELET COUNT 232 10^3/uL (150-450); RED BLOOD COUNT 4.41 10^6/uL (3.72-5.28); RED CELL DISTRIBUTION WIDTH 13.8 % (11.5-14.0); SEGMENTED NEUTROPHILS % (AUTO) 40.2 % (42-78); TOTAL CELLS COUNTED % (AUTO) 100 %
[2018-10-18 16:03] LABS: APPEARANCE,URINE SLIGHTLY-CLOUDY; BILIRUBIN,URINE NEGATIVE (NEGATIVE); COLOR,URINE YELLOW; GLUCOSE, URINE NEGATIVE (NEGATIVE); KETONES,URINE NEGATIVE (NEGATIVE); LEUKOCYTE ESTERASE,URINE NEGATIVE (NEGATIVE); NITRITE,URINE NEGATIVE (NEGATIVE); PROTEIN,URINE 30 mg/dL (NEGATIVE); UROBILINOGEN,URINE NEGATIVE mg/dL (<2.0)
[2018-10-18 16:16] LABS: ALANINE AMINOTRANSFERASE 20 U/L (9-52); ALBUMIN 4.2 g/dL (3.5-5.0); ALKALINE PHOSPHATASE 81 U/L (38-126); ANION GAP 8 (5-19); ASPARTATE AMINO TRANSFERASE 18 U/L (14-36); BILIRUBIN,DIRECT 0.2 mg/dL (0.0-0.4); BILIRUBIN,TOTAL 0.4 mg/dL (0.2-1.3); BLOOD UREA NITROGEN 13 mg/dL (7-20); CALCIUM 9.6 mg/dL (8.4-10.2); CARBON DIOXIDE 32 mmol/L (22-30); CHLORIDE 105 mmol/L (98-107); CREATINE KINASE 160 U/L (30-135); GLUCOSE 71 mg/dL (75-110); LIPASE 48.2 U/L (23-300); POTASSIUM 3.6 mmol/L (3.6-5.0); SODIUM 144.5 mmol/L (137-145); TOTAL PROTEIN 8.1 g/dL (6.3-8.2)
--- NOTE | 2018-10-18 16:38 | RADIOLOGY REPORT (SQ) ---
EXAM DESCRIPTION: CHEST 2 VIEWS COMPLETED DATE/TIME: 10/18/2018 4:30 pm REASON FOR STUDY: cp COMPARISON: 08/28/2013 EXAM PARAMETERS: NUMBER OF VIEWS: two views TECHNIQUE: Digital Frontal and Lateral radiographic views of the chest acquired. RADIATION DOSE: NA LIMITATIONS: none FINDINGS: LUNGS AND PLEURA: No opacities, masses or pneumothorax. No pleural effusion. MEDIASTINUM AND HILAR STRUCTURES: No masses or contour abnormalities. HEART AND VASCULAR STRUCTURES: Heart normal size. No evidence for failure. BONES: No acute findings. HARDWARE: None in the chest. OTHER: No other significant finding. IMPRESSION: NO ACUTE RADIOGRAPHIC FINDING IN THE CHEST. TECHNICAL DOCUMENTATION: JOB ID: [id number] [employer]- All Rights Reserved Reading location - IP/workstation name: [email or web address]
--- NOTE | 2018-10-18 17:29 | EKG REPORT ---
SEVERITY:- ABNORMAL ECG - SINUS RHYTHM PROBABLE LEFT VENTRICULAR HYPERTROPHY : Confirmed by: Ney Malik MD 18-Oct-2018 17:29:00
[2018-10-18] MEDS ORDERED: LOSARTAN POTASSIUM 50 MG TABLET PO ONE (19:15)
[2018-10-18] MEDS ORDERED: CLONIDINE 0.1 MG/24 HR PATCH.TDWK TD ONE (19:15)
--- NOTE | 2018-10-18 19:21 | ER Document Report ---
ED General - General Chief Complaint: Chest Pain Stated Complaint: CHEST PAIN Time Seen by Provider: 10/18/18 15:21 Primary Care Provider: YAMILET KYLE FNP-C [NO LOCAL MD] - Follow up as needed Mode of Arrival: Ambulatory Notes: Patient is a 38-year-old female with a past medical history of essential hypertension, fibromyalgia, sarcoidosis, presents with concerns of chest discomfort. Patient states that the symptoms started 48 hours ago and has been constant since that time. Started after she took an oral clonidine tablet. Describes it as a burning sensation in her chest that is worsened by swallowing food or beverage. She states sometimes she feels like she needs to burp or b ring up saliva which sometimes helps her symptoms. Symptoms are regarded as being mild to moderate in intensity. Nothing seems to improve her symptoms. Has never had similar symptoms in the past. Has not been taking clonidine for the past 24 hours due to this symptom. Has not notified her primary care doctor regarding today's concerns. Has had some relief with a GI cocktail provided in triage. States that it is not unusual for her have blood pressures well into the 200 range. TRAVEL OUTSIDE OF THE [place] IN LAST 30 DAYS: No - Related Data Allergies/Adverse Reactions: latex [Latex] Allergy (Severe, Verified 10/18/18 14:56) Hives hydrochlorothiazide [Hydrochlorothiazide] Allergy (Unknown, Verified 10/18/18 14:56) Hives amlodipine [From Norvasc] Allergy (Verified 10/18/18 14:56) amoxicillin [Amoxicillin] Allergy (Verified 10/18/18 14:56) lisinopril [Lisinopril] Adverse Reaction (Unknown, Verified 10/18/18 14:56) Hives Past Medical History - General Information source: Patient - Social History Smoking Status: Never Smoker Chew tobacco use (# tins/day): No Frequency of alcohol use: None Drug Abuse: None Lives with: Spouse/Significant other Family History: CAD, DM, Hyperlipidemia, Hypertension, Other - lupus Patient has suicidal ideation: No Patient has homicidal ideation: No - Past Medical History Cardiac Medical History: Reports: Hx Hypertension Denies: Hx Coronary Artery Disease, Hx Heart Attack Pulmonary Medical History: Reports: Hx Pneumonia Denies: Hx Asthma, Hx Bronchitis, Hx COPD Neurological Medical History: Reports: Hx Migraine. Denies: Hx Cerebrovascular Accident, Hx Seizures Endocrine Medical History: Denies: Hx Diabetes Mellitus Type 2, Hx Hypothyroidism Renal/ Medical History: Denies: Hx End Stage Renal Disease, Hx Peritoneal Dialysis, Hx Renal Insufficiency GI Medical History: Reports: Hx Gastritis, Hx Gastroesophageal Reflux Disease Musculoskeletal Medical History: Reports Hx Arthritis, Reports Hx Fibromyalgia Psychiatric Medical History: Reports: Hx Anxiety Past Surgical History: Reports: Hx Gynecologic Surgery - bilateral oophorectomy; hysterectomy., Hx Hysterectomy - Immunizations Immunizations up to date: Yes Hx Diphtheria, Pertussis, Tetanus Vaccination: Yes Review of Systems - Review of Systems Notes: Constitutional: Negative for fever. HENT: Negative for sore throat. Eyes: Negative for visual changes. Cardiovascular: Positive for chest discomfort Respiratory: Negative for shortness of breath. Gastrointestinal: Negative for abdominal pain, vomiting or diarrhea. Genitourinary: Negative for dysuria. Musculoskeletal: Negative for back pain. Skin: Negative for rash. Neurological: Negative for headaches, weakness or numbness. 10 point ROS negative except as marked above and in HPI. Physical Exam - Vital signs Vitals: Temp Pulse Resp BP Pulse Ox 97.9 F 85 18 162/109 H 97 10/18/18 15:15 10/18/18 15:15 10/18/18 15:15 10/18/18 15:15 10/18/18 15:15 Interpretation: Hypertensive Notes: PHYSICAL EXAMINATION: GENERAL: Well-appearing, well-nourished and in no acute distress. HEAD: Atraumatic, normocephalic. EYES: Pupils equal round and reactive to light, extraocular movements intact, sclera anicteric, conjunctiva are normal. ENT: nares patent, oropharynx clear without exudates. Moist mucous membranes. NECK: Normal range of motion, supple without lymphadenopathy LUNGS: Breath sounds clear to auscultation bilaterally and equal. No wheezes rales or rhonchi. HEART: Regular rate and rhythm without murmurs ABDOMEN: Soft, nontender, normoactive bowel sounds. No guarding, no rebound. No masses appreciated. EXTREMITIES: Normal range of motion, no pitting or edema. No cyanosis. NEUROLOGICAL: No focal neurological deficits. Moves all extremities spontaneously and on command. PSYCH: Normal mood, normal affect. SKIN: Warm, Dry, normal turgor, no rashes or lesions noted. Course - Re-evaluation Re-evalutation: 10/18/18 19:18 Presentation of chest pain in an otherwise well appearing patient. Low clinical suspicion for ACS given clinical history, exam, EKG without ST elevations or depressions, and negative initial troponin. HEART score less than or equal to 3. PE also seems unlikely given clinical history, absence of tachycardia or dyspnea. CXR without evidence of pneumothorax or pneumonia. No widened mediastinum. Aortic dissection also seems unlikely given history, symmetric pulses, CXR, and vitals. Patient's blood pressure is markedly elevated although by her report it is not unusual for her to be this high particular when she is not taking anything for blood pressure. She also be having rebound hypertension after coming off clonidine abruptly. She has not started on clonidine patch and oral losartan here in the emergency department and will be discharged home on these medications. Will not have repeat troponins as patient has been having continuous chest pain for greater than 36 hours at the time of my assessment. Her symptoms sound to be very esophageal in origin particular given that they are worsened by food or drink. Overall assessment: Chest pain in a patient without evidence of cardiac or other serious etiology on workup today. I discussed with patient that, based on their age, risk factors and emergency department testing today, the likelihood that their symptoms are related to a heart attack is very low (estimated risk of heart attack or over the next 30 days of less than 1%). The patient demonstrates decision making capacity and has verbalized an understanding of these risks to me. Based on this, the patient has chosen to follow-up as an outpatient. Usual chest pain return precautions reviewed. The patient states u nderstanding and agreement with this plan. - Vital Signs Vital signs: Temp Pulse Resp BP Pulse Ox 97.9 F 85 18 235/135 H 97 10/18/18 15:15 10/18/18 15:15 10/18/18 15:15 10/18/18 18:33 10/18/18 15:15 - Laboratory Result Diagrams: 10/18/18 15:40 10/18/18 15:40 Laboratory results interpreted by me: 10/18/18 10/18/18 10/18/18 15:40 15:40 15:40 Seg Neutrophils % 40.2 L Absolute Neutrophils 1.6 L Carbon Dioxide 32 H Glucose 71 L Creatine Kinase 160 H Urine Protein 30 H - Diagnostic Test Radiology reviewed: Image reviewed, Reports reviewed Radiology results interpreted by me: 10/18/18 19:19 Chest x-ray: No acute infiltrate or pneumothorax - EKG Interpretation by Me Additional EKG results interpreted by me: 10/18/18 19:19 Sinus rhythm, rate 86, no ST elevations or depressions. QTC is 474. Discharge - Discharge Clinical Impression: Chest discomfort, Medication side effect, Essential hypertension Condition: Good Disposition: HOME, SELF-CARE Additional Instructions: You were seen today for blood pressure that was high. This is a long-term risk factor for multiple medical problems including heart attack and stroke. However, the blood pressure in of itself will not cause you to have an acute stroke or heart attack over the course of just several days or weeks. You need to have a gradual reduction of your blood pressure back to normal levels over the next several months in conjunction with your primary care physician. You are being started on a clonidine patch and oral losartan to try control your blood pressure. You were seen today for chest pain. The exact cause of your pain is unclear but may be related to esophageal irritation. However, based on your cardiac enzyme testing, chest x-ray, and EKG it does not appear that it is from an immediately life-threatening cause at this time. Although your testing here is normal is critical that you follow-up with your primary care physician for continued evaluation of this chest pain and possible stress testing. I recommended you see your physician within the next 24-48 hours to be evaluated for consideration of a stress test. Please return to emergency department immediately if you have worsening of your chest pain, shortness of breath, vomiting, become unable to exert yourself due to pain or difficulty breathing, you pass out, or have any pain that radiates into your arms, jaw, or back. Please also return if you have any additional symptoms that are concerning to you. Please begin taking famotidine 40 mg in the morning and 40 mg at night. Take Carafate prior to meals. You may also take medicine such as Pepto-Bismol or Tums to assist with your pain. As we have discussed, the most important thing is lifestyle changes. You need to avoid smoking, sodas, tea, coffee, alcohol, spicy foods, and acidic foods such as citrus fruits, tomato based products, berries, and most fruit juices. Prescriptions: Clonidine [Catapres-Tts 1 (0.1 mg/24 Hr) Transderm Patch] 1 each TD WE #5 patch.tdwk Losartan Potassium 100 mg PO DAILY #30 tablet Referrals: YAMILET KYLE FNP-C [NO LOCAL MD] - Follow up tomorrow
[2018-10-18 20:31] VITALS: BP 190/95
== END 2018-10-18 20:00 | disposition home or self-care (01) ==
LOC: ER 14:55
DX: T50.905A Adverse effect of unspecified drugs, medicaments and biological substances, initial encounter (principal); R07.9 Chest pain, unspecified; I10 Essential (primary) hypertension; Z79.899 Other long term (current) drug therapy
CPT/HCPCS: 93005; 99285; 36415; 82550; 83690; 85025; 80053; 81001; 84484; 71046; 93010; J3490 ×2

== ENCOUNTER 2018-11-09 15:16 | Emergency (ER) | payer BC ==
--- NOTE | 2018-11-09 16:04 | ER Document Report ---
ED Medical Screen (RME) - General Chief Complaint: Flank Pain Stated Complaint: BACK PAIN, LEG PAIN, ABDOMINAL PAIN Time Seen by Provider: 11/09/18 15:57 Primary Care Provider: SYDNEY DELEON FNP-C [Primary Care Provider] - Follow up as needed Mode of Arrival: Ambulatory Information source: Patient Notes: Patient presents to the emergency department with multiple complaints. She reports she started with left-sided back pain that radiated to her left lower abdomen notes on the right side. Also complains that her right knee is swollen. Patient has history of fibromyalgia sarcoidosis and high blood pressure. No other complaints such as fever vomiting diarrhea. Ambulated into the RME room without problems without limp. I have greeted and performed a rapid initial assessment of this patient. A comprehensive ED assessment and evaluation of the patient, analysis of test results and completion of the medical decision making process will be conducted by additional ED providers. Dictation of this chart was performed using voice recognition software; therefore, there may be some unintended grammatical errors. TRAVEL OUTSIDE OF THE [place] IN LAST 30 DAYS: No - Related Data Allergies/Adverse Reactions: latex [Latex] Allergy (Severe, Verified 11/09/18 15:17) Hives hydrochlorothiazide [Hydrochlorothiazide] Allergy (Unknown, Verified 11/09/18 15:17) Hives amlodipine [From Norvasc] Allergy (Verified 11/09/18 15:17) amoxicillin [Amoxicillin] Allergy (Verified 11/09/18 15:17) lisinopril [Lisinopril] Adverse Reaction (Unknown, Verified 11/09/18 15:17) Hives Past Medical History - Past Medical History Cardiac Medical History: Reports: Hx Hypertension Denies: Hx Coronary Artery Disease, Hx Heart Attack Pulmonary Medical History: Reports: Hx Pneumonia Denies: Hx Asthma, Hx Bronchitis, Hx COPD Neurological Medical History: Reports: Hx Migraine. Denies: Hx Cerebrovascular Accident, Hx Seizures Endocrine Medical History: Denies: Hx Diabetes Mellitus Type 2, Hx Hypothyroidism Renal/ Medical History: Denies: Hx End Stage Renal Disease, Hx Peritoneal Dialysis, Hx Renal Insufficiency GI Medical History: Reports: Hx Gastritis, Hx Gastroesophageal Reflux Disease Musculoskeltal Medical History: Reports Hx Arthritis, Reports Hx Fibromyalgia Psychiatric Medical History: Reports: Hx Anxiety Past Surgical History: Reports: Hx Gynecologic Surgery - bilateral oophorectomy; hysterectomy., Hx Hysterectomy - Immunizations Immunizations up to date: Yes Hx Diphtheria, Pertussis, Tetanus Vaccination: Yes Physical Exam - Vital signs Vitals: Temp Pulse Resp BP Pulse Ox 98.1 F 71 16 170/131 H 99 11/09/18 15:27 11/09/18 15:27 11/09/18 15:27 11/09/18 15:27 11/09/18 15:27 Course - Vital Signs Vital signs: Temp Pulse Resp BP Pulse Ox 98.1 F 71 16 170/131 H 99 11/09/18 15:27 11/09/18 15:27 11/09/18 15:27 11/09/18 15:27 11/09/18 15:27 Doctor's Discharge - Discharge Referrals: SYDNEY DELEON FNP-C [Primary Care Provider] - Follow up as needed
[2018-11-09 16:46] LABS: ABSOLUTE EOSINOPHILS # (AUTO) 0.1 10^3/uL (0.0-0.6); ABSOLUTE LYMPHOCYTES (AUTO) 1.7 10^3/uL (0.5-4.7); ABSOLUTE MONOCYTES (AUTO) 0.4 10^3/uL (0.1-1.4); ABSOLUTE NEUT (AUTO) 1.9 10^3/uL (1.7-8.2); BASOPHILS % (AUTO) 0.8 % (0-2); EOSINOPHILS % (AUTO) 2.7 % (0-6); HEMATOCRIT 39.5 % (36.0-47.0); HEMOGLOBIN 13.5 g/dL (12.0-15.5); LYMPHOCYTES % (AUTO) 41.2 % (13-45); MEAN CORPUSCULAR HEMOGLOBIN 30.3 pg (27.0-33.4); MEAN CORPUSCULAR HGB CONC 34.3 g/dL (32.0-36.0); MEAN CORPUSCULAR VOLUME 89 fl (80-97); MONOCYTES % (AUTO) 9.8 % (3-13); PLATELET COUNT 246 10^3/uL (150-450); RED BLOOD COUNT 4.46 10^6/uL (3.72-5.28); RED CELL DISTRIBUTION WIDTH 13.6 % (11.5-14.0); SEGMENTED NEUTROPHILS % (AUTO) 45.5 % (42-78); TOTAL CELLS COUNTED % (AUTO) 100 %; WHITE BLOOD COUNT 4.1 10^3/uL (4.0-10.5)
[2018-11-09 16:47] LABS: AMORPHOUS SEDIMENT,URINE TRACE /HPF; CALCIUM OXALATE CRYSTALS,URINE RARE /HPF
[2018-11-09 16:51] LABS: APPEARANCE,URINE CLEAR; BILIRUBIN,URINE NEGATIVE (NEGATIVE); COLOR,URINE YELLOW; GLUCOSE, URINE NEGATIVE (NEGATIVE); KETONES,URINE NEGATIVE (NEGATIVE); LEUKOCYTE ESTERASE,URINE NEGATIVE (NEGATIVE); NITRITE,URINE NEGATIVE (NEGATIVE); PROTEIN,URINE NEGATIVE (NEGATIVE); URINE SPECIFIC GRAVITY 1.017
[2018-11-09 16:59] LABS: ALANINE AMINOTRANSFERASE 27 U/L (9-52); ALBUMIN 4.3 g/dL (3.5-5.0); ALKALINE PHOSPHATASE 88 U/L (38-126); ANION GAP 6 (5-19); ASPARTATE AMINO TRANSFERASE 23 U/L (14-36); BILIRUBIN,DIRECT 0.2 mg/dL (0.0-0.4); BILIRUBIN,TOTAL 0.4 mg/dL (0.2-1.3); BLOOD UREA NITROGEN 12 mg/dL (7-20); CALCIUM 9.3 mg/dL (8.4-10.2); CARBON DIOXIDE 33 mmol/L (22-30); CHLORIDE 102 mmol/L (98-107); GLUCOSE 84 mg/dL (75-110); POTASSIUM 3.8 mmol/L (3.6-5.0); SODIUM 141.1 mmol/L (137-145); TOTAL PROTEIN 8.2 g/dL (6.3-8.2)
[2018-11-09] MEDS ORDERED: KETOROLAC TROMETHAMINE 10 MG TABLET PO ONE (17:13)
[2018-11-09] MEDS: OXYCODONE-ACETAMINOPHEN 5-325 MG TABLET PO ONE ×2 (17:21→17:56)
[2018-11-09 18:01] LABS: EPITHELIALS (WET MOUNT) 3+ EPITHELIALS SEEN; T.VAGINALIS (WET MOUNT) NO TRICHOMONAS SEEN; WBCS (WET MOUNT) RARE WBCS SEEN; YEAST (WET MOUNT) NO YEAST SEEN
[2018-11-09] MEDS ORDERED: AZITHROMYCIN 250 MG TABLET PO ONE (18:57)
[2018-11-09] MEDS ORDERED: CEFTRIAXONE INJ 250 MG VIAL IM ONE (18:57)
[2018-11-09] MEDS ORDERED: MORPHINE SULFATE 10 MG/ML INJ IM ONE (18:58)
[2018-11-09] MEDS ORDERED: ONDANSETRON 4 MG TAB.RAPDIS PO ONE (18:58)
--- NOTE | 2018-11-09 19:01 | ER Document Report ---
ED General - General Chief Complaint: Flank Pain Stated Complaint: BACK PAIN, LEG PAIN, ABDOMINAL PAIN Time Seen by Provider: 11/09/18 15:57 Primary Care Provider: SYDNEY DELEON FNP-C [Primary Care Provider] - Follow up in 3-5 days Mode of Arrival: Ambulatory Information source: Patient, [facility] Records Notes: 38-year-old female with hypertension, fibromyalgia, reflux, surgical history of hysterectomy, oophorectomy presents with multiple complaints which include low back pain, lower abdominal pain, vaginal discharge, urinary frequency, right knee swelling. Patient states that her back pain started 3 days prior to arrival. She states it was initially on her left side but now has migrated to her right side and does have some radiation down her right leg. She denies any recent back injury or prior back injury. She denies urinary retention, fecal incontinence, saddle anesthesia, lower extremity weakness, history of IV drug use, fever. Patient reports having yellowish vaginal discharge for 1 week and increased urinary frequency. Her lower abdominal pain is described as a cramping intermittent pain. Patient denies any fever, chills, nausea, vomiting. Patient's right knee pain also started 1 week prior to arrival patient also denies injury. TRAVEL OUTSIDE OF THE [place] IN LAST 30 DAYS: No - HPI Onset: Other Onset/Duration: Gradual, Persistent Quality of pain: Achy, Cramping Severity: Mild Associated symptoms: Body/muscle aches. denies: Chest pain, Nonproductive cough, Productive cough, Fever, Nausea, Vomiting, Shortness of breath Exacerbated by: Movement, Walking Relieved by: Denies Similar symptoms previously: No Recently seen / treated by doctor: No - Related Data Allergies/Adverse Reactions: latex [Latex] Allergy (Severe, Verified 11/09/18 15:17) Hives hydrochlorothiazide [Hydrochlorothiazide] Allergy (Unknown, Verified 11/09/18 15:17) Hives acetaminophen [From Tylenol] Allergy (Verified 11/09/18 17:23) amlodipine [From Norvasc] Allergy (Verified 11/09/18 15:17) amoxicillin [Amoxicillin] Allergy (Verified 11/09/18 15:17) lisinopril [Lisinopril] Adverse Reaction (Unknown, Verified 11/09/18 15:17) Hives Past Medical History - General Information source: Patient - Social History Smoking Status: Never Smoker Chew tobacco use (# tins/day): No Frequency of alcohol use: Occasional Drug Abuse: None Lives with: Spouse/Significant other Family History: CAD, DM, Hyperlipidemia, Hypertension, Other - lupus Patient has suicidal ideation: No Patient has homicidal ideation: No - Past Medical History Cardiac Medical History: Reports: Hx Hypertension Denies: Hx Coronary Artery Disease, Hx Heart Attack Pulmonary Medical History: Reports: Hx Pneumonia Denies: Hx Asthma, Hx Bronchitis, Hx COPD Neurological Medical History: Reports: Hx Migraine. Denies: Hx Cerebrovascular Accident, Hx Seizures Endocrine Medical History: Denies: Hx Diabetes Mellitus Type 2, Hx Hypothyroidism Renal/ Medical History: Denies: Hx End Stage Renal Disease, Hx Peritoneal Dialysis, Hx Renal Insufficiency GI Medical History: Reports: Hx Gastritis, Hx Gastroesophageal Reflux Disease Musculoskeletal Medical History: Reports Hx Arthritis, Reports Hx Fibromyalgia Psychiatric Medical History: Reports: Hx Anxiety Past Surgical History: Reports: Hx Gynecologic Surgery - bilateral oophorectomy; hysterectomy., Hx Hysterectomy - Immunizations Immunizations up to date: Yes Hx Diphtheria, Pertussis, Tetanus Vaccination: Yes Review of Systems - Review of Systems Constitutional: denies: Fever, Recent illness EENT: denies: Blurred vision, Throat pain Cardiovascular: denies: Chest pain, Palpitations, Dizziness, Lightheaded Respiratory: denies: Cough, Short of breath Gastrointestinal: Abdominal pain. denies: Nausea, Vomiting, Poor appetite Genitourinary: Dysuria, Frequency. denies: Burning Female Genitourinary: Vaginal discharge Musculoskeletal: Back pain, Joint pain, Joint swelling Skin: denies: Rash Hematologic/Lymphatic: No symptoms reported Neurological/Psychological: denies: Headaches -: Yes All other systems reviewed and negative Physical Exam - Vital signs Vitals: Temp Pulse Resp BP Pulse Ox 98.1 F 71 16 170/131 H 99 11/09/18 15:27 11/09/18 15:27 11/09/18 15:27 11/09/18 15:27 11/09/18 15:27 - Notes Notes: PHYSICAL EXAMINATION: GENERAL: Well-appearing, well-nourished and in no acute distress. HEAD: Atraumatic, normocephalic. EYES: Pupils equal round and reactive to light, extraocular movements intact, conjunctiva are normal. ENT: Nares patent, oropharynx clear without exudates. Moist mucous membranes. NECK: Normal range of motion, supple without lymphadenopathy LUNGS: Breath sounds clear to auscultation bilaterally and equal. No wheezes rales or rhonchi. HEART: Regular rate and rhythm without murmurs ABDOMEN: Soft, nontender, nondistended abdomen. No guarding, no rebound. No masses appreciated. Female : Pelvic exam; External genitalia unremarkable. Speculum exam with no discharge. Vaginal wall unremarkable. Os closed. No cervical motion tenderness. No adnexal tenderness or masses appreciated. Swabs obtained for gonorrhea, chlamydia and wet prep. Musculoskeletal: Normal range of motion, no pitting or edema. No cyanosis. NEUROLOGICAL: Cranial nerves grossly intact. Normal speech, normal gait. Normal sensory, motor exams PSYCH: Normal mood, normal affect. SKIN: Warm, Dry, normal turgor, no rashes or lesions noted. Course - Re-evaluation Re-evalutation: 11/11/18 11:00 Laboratory 11/09/18 11/09/18 11/09/18 16:19 16:19 16:19 WBC 4.1 RBC 4.46 Hgb 13.5 Hct 39.5 MCV 89 MCH 30.3 MCHC 34.3 RDW 13.6 Plt Count 246 Seg Neutrophils % 45.5 Lymphocytes % 41.2 Monocytes % 9.8 Eosinophils % 2.7 Basophils % 0.8 Absolute Neutrophils 1.9 Absolute Lymphocytes 1.7 Absolute Monocytes 0.4 Absolute Eosinophils 0.1 Absolute Basophils 0.0 Sodium 141.1 Potassium 3.8 Chloride 102 Carbon Dioxide 33 H Anion Gap 6 BUN 12 Creatinine 0.80 Est GFR ( Amer) > 60 Est GFR (Non-Af Amer) > 60 Glucose 84 Calcium 9.3 Total Bilirubin 0.4 Direct Bilirubin 0.2 Neonat Total Bilirubin Not Reportable Neonat Direct Bilirubin Not Reportable Neonat Indirect Bili Not Reportable AST 23 ALT 27 Alkaline Phosphatase 88 Total Protein 8.2 Albumin 4.3 Urine Color Urine Appearance Urine pH Ur Specific [place] Urine Protein Urine Glucose (UA) Urine Ketones Urine Blood Urine Nitrite Urine Bilirubin Urine Urobilinogen Ur Leukocyte Esterase Urine WBC (Auto) Urine RBC (Auto) Squamous Epi Cells Auto Calcium Oxalate Cr Auto Amorphous Sediment Auto Urine Mucus (Auto) Urine Ascorbic Acid Epi Cells (Wet Prep) Trichomonas (Wet Prep) Vaginal WBC Vaginal Yeast Chlamydia DNA (PCR) Cancelled N.gonorrhoeae DNA (PCR) Cancelled 11/09/18 11/09/18 11/09/18 16:19 17:50 17:50 WBC RBC Hgb Hct MCV MCH MCHC RDW Plt Count Seg Neutrophils % Lymphocytes % Monocytes % Eosinophils % Basophils % Absolute Neutrophils Absolute Lymphocytes Absolute Monocytes Absolute Eosinophils Absolute Basophils Sodium Potassium Chloride Carbon Dioxide Anion Gap BUN Creatinine Est GFR ( Amer) Est GFR (Non-Af Amer) Glucose Calcium Total Bilirubin Direct Bilirubin Neonat Total Bilirubin Neonat Direct Bilirubin Neonat Indirect Bili AST ALT Alkaline Phosphatase Total Protein Albumin Urine Color YELLOW Urine Appearance CLEAR Urine pH 7.0 Ur Specific [place] 1.017 Urine Protein NEGATIVE Urine Glucose (UA) NEGATIVE Urine Ketones NEGATIVE Urine Blood NEGATIVE Urine Nitrite NEGATIVE Urine Bilirubin NEGATIVE Urine Urobilinogen 2.0 H Ur Leukocyte Esterase NEGATIVE Urine WBC (Auto) 2 Urine RBC (Auto) 5 Squamous Epi Cells Auto 2 Calcium Oxalate Cr Auto RARE Amorphous Sediment Auto TRACE Urine Mucus (Auto) RARE Urine Ascorbic Acid NEGATIVE Epi Cells (Wet Prep) 3+ EPITHELIALS SEEN Trichomonas (Wet Prep) NO TRICHOMONAS SEEN Vaginal WBC RARE WBCS SEEN Vaginal Yeast NO YEAST SEEN Chlamydia DNA (PCR) NOT DETECTED N.gonorrhoeae DNA (PCR) NOT DETECTED Temp Pulse Resp BP Pulse Ox 98.5 F 66 18 158/83 H 99 11/09/18 19:48 11/09/18 19:48 11/09/18 19:48 11/09/18 19:48 11/09/18 19:48 38-year-old female presents with multiple complaints including back pain, knee pain, vaginal discharge, urinary frequency. Vital signs reviewed and within normal limits. Patient does not appear toxic or dehydrated. She is in no acute distress. Patient can ambulate without difficulty. She does have some tender ness with palpation to the right sciatic notch. Normal strength and sensation. Abdominal exam benign 9. Pelvic exam also benign. No evidence of urinary tract infection, STD, bacterial vaginosis. I did explain that the patient's labs were normal and the patient argued that the last time she had a urinary tract infection she was told the same thing and then became very ill. Patient is requesting treatment for gonorrhea, chlamydia and urinary tract infection. She was provided this and discharged home in stable condition. Patient was evaluated and treated as appropriate for the patient's presenting symptoms and complaint, with consideration of any critical or life threatening conditions that may be associated with their obtained history and exam as noted above. All results were discussed with patient. Patient provided the opportunity to ask questions, and express concerns. Patient was educated on treatments based on their presumed diagnosis as noted above. At this time we will di scharge the patient with return precautions and follow-up recommendations. Verbal discharge instructions given a the bedside. Medication warnings reviewed. Patient is in agreement with this plan and has verbalized understanding of return precautions. After careful consideration I feel that that patient can be safely discharged from the emergency department, they were advised to followup with a primary care physician in 2-3 days. Dictation on this chart was performed using voice recognition software and may result in unintended grammatical, spelling, syntax or errors. - Vital Signs Vital signs: Temp Pulse Resp BP Pulse Ox 98.5 F 66 18 158/83 H 99 11/09/18 19:48 11/09/18 19:48 11/09/18 19:48 11/09/18 19:48 11/09/18 19:48 - Laboratory Result Diagrams: 11/09/18 16:19 11/09/18 16:19 Laboratory results interpreted by me: 11/09/18 11/09/18 16:19 16:19 Carbon Dioxide 33 H Urine Urobilinogen 2.0 H Discharge - Discharge Clinical Impression: Urinary frequency, Vaginal discharge, Abdominal cramping Low back pain Qualifiers: Chronicity: acute Back pain laterality: right Sciatica presence: without sciatica Qualified Code(s): M54.5 - Low back pain Condition: Good Disposition: HOME, SELF-CARE Instructions: Abdominal Pain ([facility]), Low Back Pain ([facility]) Additional Instructions: Your urine shows findings consistent with a urinary tract infection. Please take all the antibiotics as directed even if your symptoms have improved. Please follow-up with your primary care physician as needed. Return to emergency room if you develop fever >101F, persistent vomiting, become lethargic, have severe pain in your sides, or any other symptoms that are concerning to you. Prescriptions: Sulfamethoxazole/Trimethoprim [Bactrim Ds Tablet] 1 each PO BID 3 Days #6 tablet Tramadol HCl [Ultram 50 mg Tablet] 50 mg PO Q8H PRN #12 tablet PRN Reason: For Pain Scale 2-3 Forms: Elevated Blood Pressure Referrals: DELEON,SYDNEY, [employer] WORK[employer]-C [Primary Care Provider] - Follow up in 3-5 days
[2018-11-09 19:29] LABS: CHLAM PCR NOT DETECTED (NOT DETECT)
[2018-11-09 19:59] VITALS: BP 158/83
== END 2018-11-09 19:59 | disposition home or self-care (01) ==
LOC: ER 15:16
DX: M54.5 Low back pain (principal); R35.0 Frequency of micturition; N89.8 Other specified noninflammatory disorders of vagina; R10.9 Unspecified abdominal pain; R30.0 Dysuria; M54.9 Dorsalgia, unspecified; R10.30 Lower abdominal pain, unspecified; M79.89 Other specified soft tissue disorders; M79.604 Pain in right leg; M79.10 Myalgia, unspecified site; I10 Essential (primary) hypertension
CPT/HCPCS: 99283; 96372; 36415; 87210; 85025; 80053; 81001; 87491; 87591; S0119; J2270; J0696; J3490; L1830

== ENCOUNTER 2019-06-22 20:03 | Emergency (ER) | payer BC ==
--- NOTE | 2019-06-22 21:12 | ER Document Report ---
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 She states since this morning she has been vomiting and diarrhea frequently all day. She states the chest pain started this afternoon. The left upper chest through to her shoulder blade. She states her lower back is also killing her. Patient is alert oriented respirations regular nonlabored speaking in full sentences. She states that she has had chest pain before but she does not remember what they diagnosed her with. She states she is having a headache also due to high blood pressure. Blood pressure manually is 192/120 with the Dinamap is 188/131 on the right arm. She states intermittently she has high blood pressure but is not on any blood pressure medicine. She has diagnosis of the high blood pressure fibromyalgia and sarcoidosis. She states she uses estrogen patches, vitamin D and multivitamin other only medication she takes. Denies cigarettes, use of alcohol, or use of illicit drugs. I have greeted and performed a rapid initial assessment of this patient. A comprehensive ED assessment and evaluation of the patient, analysis of test results and completion of medical decision making process will be conducted by an additional ED providers. TRAVEL OUTSIDE OF THE [place] IN LAST 30 DAYS: No - Related Data Allergies/Adverse Reactions: latex [Latex] Allergy (Severe, Verified 11/09/18 15:17) Hives hydrochlorothiazide [Hydrochlorothiazide] Allergy (Unknown, Verified 11/09/18 15:17) Hives acetaminophen [From Tylenol] Allergy (Verified 11/09/18 17:23) amlodipine [From Norvasc] Allergy (Verified 11/09/18 15:17) amoxicillin [Amoxicillin] Allergy (Verified 11/09/18 15:17) lisinopril [Lisinopril] Adverse Reaction (Unknown, Verified 11/09/18 15:17) Hives Past Medical History - Past Medical History Cardiac Medical History: Reports: Hx Hypertension Denies: Hx Coronary Artery Disease, Hx Heart Attack Pulmonary Medical History: Reports: Hx Pneumonia Denies: Hx Asthma, Hx Bronchitis, Hx COPD Neurological Medical History: Reports: Hx Migraine. Denies: Hx Cerebrovascular Accident, Hx Seizures Endocrine Medical History: Denies: Hx Diabetes Mellitus Type 2, Hx Hypothyroidism Renal/ Medical History: Denies: Hx End Stage Renal Disease, Hx Peritoneal Dialysis, Hx Renal Insufficiency GI Medical History: Reports: Hx Gastritis, Hx Gastroesophageal Reflux Disease Musculoskeltal Medical History: Reports Hx Arthritis, Reports Hx Fibromyalgia Psychiatric Medical History: Reports: Hx Anxiety Past Surgical History: Reports: Hx Gynecologic Surgery - bilateral oophorectomy; hysterectomy., Hx Hysterectomy - Immunizations Immunizations up to date: Yes Hx Diphtheria, Pertussis, Tetanus Vaccination: Yes Physical Exam - Vital signs Vitals: Temp Pulse Resp BP Pulse Ox 98.7 F 104 H 18 147/117 H 97 06/22/19 20:35 06/22/19 20:35 06/22/19 20:35 06/22/19 20:35 06/22/19 20:35 Course - Vital Signs Vital signs: Temp Pulse Resp BP Pulse Ox 98.7 F 104 H 18 147/117 H 97 06/22/19 20:35 06/22/19 20:35 06/22/19 20:35 06/22/19 20:35 06/22/19 20:35 Doctor's Discharge - Discharge Referrals: SYDNEY DELEON FNP-C [Primary Care Provider] - Follow up as needed
[2019-06-22] MEDS ORDERED: NORMAL SALINE 1000 ML 1,000 ML IV ONE (21:14)
[2019-06-22] MEDS ORDERED: ONDANSETRON 4 MG TAB.RAPDIS PO ONE (21:15)
[2019-06-22 21:46] LABS: ABSOLUTE LYMPHOCYTES (AUTO) 0.8 10^3/uL (0.5-4.7); ABSOLUTE MONOCYTES (AUTO) 0.3 10^3/uL (0.1-1.4); ABSOLUTE NEUT (AUTO) 4.9 10^3/uL (1.7-8.2); BASOPHILS % (AUTO) 0.2 % (0-2); EOSINOPHILS % (AUTO) 0.3 % (0-6); HEMATOCRIT 43.1 % (36.0-47.0); HEMOGLOBIN 14.7 g/dL (12.0-15.5); LYMPHOCYTES % (AUTO) 12.6 % (13-45); MEAN CORPUSCULAR HEMOGLOBIN 30.4 pg (27.0-33.4); MEAN CORPUSCULAR HGB CONC 34.1 g/dL (32.0-36.0); MEAN CORPUSCULAR VOLUME 89 fl (80-97); MONOCYTES % (AUTO) 5.2 % (3-13); PLATELET COUNT 234 10^3/uL (150-450); RED BLOOD COUNT 4.84 10^6/uL (3.72-5.28); RED CELL DISTRIBUTION WIDTH 13.6 % (11.5-14.0); SEGMENTED NEUTROPHILS % (AUTO) 81.7 % (42-78); TOTAL CELLS COUNTED % (AUTO) 100 %; WHITE BLOOD COUNT 6.1 10^3/uL (4.0-10.5)
[2019-06-22 21:58] LABS: APPEARANCE,URINE SLIGHTLY-CLOUDY; BILIRUBIN,URINE NEGATIVE (NEGATIVE); COLOR,URINE YELLOW; GLUCOSE, URINE NEGATIVE (NEGATIVE); KETONES,URINE NEGATIVE (NEGATIVE); PROTEIN,URINE 100 mg/dL (NEGATIVE); URINE SPECIFIC GRAVITY 1.025
--- NOTE | 2019-06-22 22:04 | RADIOLOGY REPORT (SQ) ---
EXAM DESCRIPTION: XR CHEST 2 VIEWS COMPLETED DATE/TME: 06/22/2019 21:14 CLINICAL HISTORY: 39 years, Female, Chest pain COMPARISON: 10/18/2018 chest NUMBER OF VIEWS: 2 TECHNIQUE: 2 views of the chest LIMITATIONS: None. FINDINGS: The heart size is normal. The lungs are clear. There is no pneumothorax IMPRESSION: Negative chest copyright 2010 [employer]™- All Rights Reserved
[2019-06-22 22:08] LABS: ALBUMIN 4.4 g/dL (3.5-5.0); ALKALINE PHOSPHATASE 93 U/L (38-126); ANION GAP 10 (5-19); ASPARTATE AMINO TRANSFERASE 25 U/L (14-36); BILIRUBIN,DIRECT 0.3 mg/dL (0.0-0.4); BILIRUBIN,TOTAL 0.6 mg/dL (0.2-1.3); BLOOD UREA NITROGEN 13 mg/dL (7-20); CALCIUM 9.3 mg/dL (8.4-10.2); CARBON DIOXIDE 31 mmol/L (22-30); CHLORIDE 100 mmol/L (98-107); GLUCOSE 100 mg/dL (75-110); POTASSIUM 3.8 mmol/L (3.6-5.0); TOTAL PROTEIN 8.7 g/dL (6.3-8.2)
[2019-06-23] MEDS ORDERED: KETOROLAC TROMETHAMINE INJ/PF 30 MG/1 ML SDV IV ONE (00:15)
[2019-06-23] MEDS ORDERED: FAMOTIDINE INJ/PF 20 MG/2 ML SDV IV ONE (00:15)
[2019-06-23] MEDS ORDERED: NORMAL SALINE 1000 ML 1,000 ML IV ONE (00:16)
--- NOTE | 2019-06-23 01:05 | RADIOLOGY REPORT (SQ) ---
EXAM DESCRIPTION: CLINICAL HISTORY: 39 years Female ,n/v/diarrhea COMPARISON: None. TECHNIQUE: Two views of the abdomen were provided.. FINDINGS: No free air is identified beneath the hemidiaphragms. No dilated loops of bowel to suggest obstruction. Phleboliths in the pelvis. IMPRESSION: No acute plain film abnormality is identified.
--- NOTE | 2019-06-23 01:59 | ER Document Report ---
Entered by SMILEY SLATER SCRIBE 06/23/19 0011 Acting as scribe for:RADHA YU MD ED General - General Chief Complaint: Abdominal Pain Stated Complaint: CHEST PAIN,DIARRHEA,FEVER Time Seen by Provider: 06/22/19 21:03 Primary Care Provider: SYDNEY DELEON FNP-C [NO LOCAL MD] - Follow up as needed Mode of Arrival: Ambulatory Information source: Patient Notes: 39-year-old female presents to the emergency department with abdominal pain and vomiting since last night. Patient states that after a meal of chicken and shrimp, she went to sleep. Patient reports that she awoke in the middle of the night with "labor like pains" and had a bowel movement. Patient stated that she woke up again at 10:30 AM and had another bowel movement with associated vomiting. Patient reports that the vomit is "mucous-like" and light brown. Patient reports that bowel movements are light brown. Patient reports chest pain, diarrhea, nausea, and sweats. Patient states that she has not tried to eat or drink anything yet. TRAVEL OUTSIDE OF THE [place] IN LAST 30 DAYS: No - Related Data Allergies/Adverse Reactions: latex [Latex] Allergy (Severe, Verified 11/09/18 15:17) Hives hydrochlorothiazide [Hydrochlorothiazide] Allergy (Unknown, Verified 11/09/18 15:17) Hives acetaminophen [From Tylenol] Allergy (Verified 11/09/18 17:23) amlodipine [From Norvasc] Allergy (Verified 11/09/18 15:17) amoxicillin [Amoxicillin] Allergy (Verified 11/09/18 15:17) lisinopril [Lisinopril] Adverse Reaction (Unknown, Verified 11/09/18 15:17) Hives Home Medications: estrogen and multivitamins. Past Medical History - General Information source: Patient - Social History Smoking Status: Never Smoker Cigarette use (# per day): No Chew tobacco use (# tins/day): No Frequency of alcohol use: Social Drug Abuse: None Family History: CAD, DM, Hyperlipidemia, Hypertension, Other - lupus Patient has suicidal ideation: No Patient has homicidal ideation: No - Past Medical History Cardiac Medical History: Reports: Hx Hypertension Pulmonary Medical History: Reports: Hx Pneumonia Neurological Medical History: Reports: Hx Migraine GI Medical History: Reports: Hx Gastritis, Hx Gastroesophageal Reflux Disease Musculoskeletal Medical History: Reports Hx Arthritis, Reports Hx Fibromyalgia Psychiatric Medical History: Reports: Hx Anxiety Past Surgical History: Reports: Hx Gynecologic Surgery - bilateral oophorectomy; hysterectomy., Hx Hysterectomy - Immunizations Immunizations up to date: Yes Hx Diphtheria, Pertussis, Tetanus Vaccination: Yes Review of Systems - Review of Systems Constitutional: See HPI, Chills. denies: Diaphoresis, Fever EENT: No symptoms reported Cardiovascular: No symptoms reported Respiratory: No symptoms reported Gastrointestinal: See HPI, Abdominal pain, Diarrhea, Nausea, Vomiting Genitourinary: No symptoms reported Female Genitourinary: No symptoms reported Musculoskeletal: No symptoms reported Skin: No symptoms reported Hematologic/Lymphatic: No symptoms reported Neurological/Psychological: No symptoms reported -: Yes All other systems reviewed and negative Physical Exam - Vital signs Vitals: Temp Pulse Resp BP Pulse Ox 98.7 F 104 H 18 147/117 H 97 06/22/19 20:35 06/22/19 20:35 06/22/19 20:35 06/22/19 20:35 06/22/19 20:35 - Notes Notes: Physical Exam: General: Alert, appears well. HEENT: Normocephalic. Atraumatic. PERRL. Extraocular movements intact. Oropharynx clear. Neck: Supple. Non-tender. Respiratory: No respiratory distress. Clear and equal breath sounds bilaterally. Cardiovascular: Regular rate and rhythm. Abdominal: Normal Inspection. Non-tender. No distension. Normal Bowel Sounds. Back: No gross abnormalities. Extremities: Moves all four extremities. Upper extremities: Normal inspection. Normal ROM. Lower extremities: Normal inspection. No edema. Normal ROM. Neurological: Normal cognition. AAOx4. Normal speech. Psychological: Normal affect. Normal Mood. Skin: Warm. Dry. Normal color. Course - Re-evaluation Re-evalutation: 06/23/19 01:51 And sleeping easily aroused no complaints of nausea vomiting diarrhea at this time. - Vital Signs Vital signs: Temp Pulse Resp BP Pulse Ox 98.1 F 73 17 148/82 H 99 06/23/19 00:31 06/23/19 00:31 06/23/19 00:31 06/23/19 00:31 06/23/19 00:31 - Laboratory Result Diagrams: 06/22/19 21:20 02/17/20 21:20 Laboratory results interpreted by me: 06/22/19 06/22/19 06/22/19 21:20 21:20 21:20 Lymph % (Auto) 12.6 L Seg Neutrophils % 81.7 H Carbon Dioxide 31 H Total Protein 8.7 H Lipase 22.7 L Urine Protein 100 H Urine Blood MODERATE H Urine Urobilinogen 2.0 H 06/23/19 01:52 Lab results does not disclose any infectious or inflammatory process going on at this time. - Diagnostic Test Radiology reviewed: Image reviewed, Reports reviewed Radiology results interpreted by me: 06/23/19 01:52 #Right chest x-ray within normal limits abdominal flat and upright does not disclose any acute abnormality. No obstruction seen. - EKG Interpretation by Me Additional EKG results interpreted by me: 06/23/19 01:54 Twelve-lead EKG done 06/22/2019 at 2011 shows sinus tachycardia rate of [address]-T wave changes. Normal intervals. Discharge - Discharge Clinical Impression: Acute gastroenteritis, Nausea and vomiting Condition: Stable Disposition: HOME, SELF-CARE Instructions: Diarrhea, Nonspecific ([facility]), Gastroenteritis (adult) ([facility]), Vomiting ([facility]) Prescriptions: Famotidine [Pepcid 20 mg Tablet] 20 mg PO DAILY #12 tablet Ondansetron [Zofran Odt 4 mg Tablet] 1 - 2 tab PO Q4H PRN #15 tab.rapdis PRN Reason: For Nausea/Vomiting Referrals: SYDNEY DELEON FNP-C [NO LOCAL MD] - Follow up as needed I personally performed the services described in the documentation, reviewed and edited the documentation which was dictated to the scribe in my presence, and it accurately records my words and actions.
[2019-06-23 02:06] VITALS: BP 134/81
[2019-06-23] MEDS ORDERED: ONDANSETRON ODT 4 MG TAB (6 TAB/ER DISP) PO PRN (02:20)
--- NOTE | 2019-06-23 11:30 | EKG REPORT ---
SEVERITY:- OTHERWISE NORMAL ECG - SINUS TACHYCARDIA : Confirmed by: Fletcher Diaz 23-Jun-2019 11:29:38
== END 2019-06-23 02:24 | disposition home or self-care (01) ==
LOC: ER 20:03
DX: K52.89 Other specified noninfective gastroenteritis and colitis (principal); R11.2 Nausea with vomiting, unspecified; R10.9 Unspecified abdominal pain; R07.9 Chest pain, unspecified; R19.7 Diarrhea, unspecified; R50.9 Fever, unspecified; Z88.8 Allergy status to other drugs, medicaments and biological substances; I10 Essential (primary) hypertension
CPT/HCPCS: 93005; 36415; 83690; 84703; 85025; 80053; 81001; 84484; 74019; 71046; 93010; S0119; J1885; J7030 ×2; S0028; 96361; 96374; 96375; 99285

== ENCOUNTER 2019-06-30 15:26 | Emergency (ER) | payer BC ==
[2019-06-30] MEDS ORDERED: IBUPROFEN 600 MG TABLET PO ONE (15:56)
[2019-06-30] MEDS ORDERED: CLONIDINE HCL 0.1 MG TABLET PO ONE (15:56)
[2019-06-30] MEDS ORDERED: BENZONATATE 100 MG CAPSULE PO ONE (15:57)
[2019-06-30] MEDS ORDERED: ONDANSETRON 4 MG TAB.RAPDIS PO ONE (15:59)
--- NOTE | 2019-06-30 16:04 | ER Document Report ---
ED Medical Screen (RME) - General Chief Complaint: Flu Symptoms Stated Complaint: FEVER/CONGESTION/WEAKNESS Time Seen by Provider: 06/30/19 15:51 Primary Care Provider: JAREN MARIE PA-C [Primary Care Provider] - Follow up as needed Notes: Patient is a 39-year-old female with a history of hypertension, sarcoidosis, and fibromyalgia who presents to the emergency department with runny nose cough, and chest congestion. Her symptoms started yesterday. Her son was diagnosed with the flu recently. Exam: Rhinorrhea noted. Cough noted. Diminished breath sounds and bilateral lower lobes. Patient is hypertensive and tachycardic. I have greeted and performed a rapid initial assessment of this patient. A comprehensive ED assessment and evaluation of the patient, analysis of test results and completion of medical decision making process will be conducted by an additional ED providers. TRAVEL OUTSIDE OF THE [place] IN LAST 30 DAYS: No - Related Data Allergies/Adverse Reactions: latex [Latex] Allergy (Severe, Verified 11/09/18 15:17) Hives hydrochlorothiazide [Hydrochlorothiazide] Allergy (Unknown, Verified 11/09/18 15:17) Hives acetaminophen [From Tylenol] Allergy (Verified 11/09/18 17:23) amlodipine [From Norvasc] Allergy (Verified 11/09/18 15:17) amoxicillin [Amoxicillin] Allergy (Verified 11/09/18 15:17) lisinopril [Lisinopril] Adverse Reaction (Unknown, Verified 11/09/18 15:17) Hives Past Medical History - Social History Frequency of alcohol use: None Drug Abuse: None - Past Medical History Cardiac Medical History: Reports: Hx Hypertension Denies: Hx Coronary Artery Disease, Hx Heart Attack Pulmonary Medical History: Reports: Hx Pneumonia Denies: Hx Asthma, Hx Bronchitis, Hx COPD Neurological Medical History: Reports: Hx Migraine. Denies: Hx Cerebrovascular Accident, Hx Seizures Endocrine Medical History: Denies: Hx Diabetes Mellitus Type 2, Hx Hypothyroidism Renal/ Medical History: Denies: Hx End Stage Renal Disease, Hx Peritoneal Dialysis, Hx Renal Insufficiency GI Medical History: Reports: Hx Gastritis, Hx Gastroesophageal Reflux Disease Musculoskeltal Medical History: Reports Hx Arthritis, Reports Hx Fibromyalgia Psychiatric Medical History: Reports: Hx Anxiety Past Surgical History: Reports: Hx Gynecologic Surgery - bilateral oophorectomy; hysterectomy., Hx Hysterectomy - Immunizations Immunizations up to date: Yes Hx Diphtheria, Pertussis, Tetanus Vaccination: Yes Physical Exam - Vital signs Vitals: Temp Pulse Resp BP Pulse Ox 100.5 F H 113 H 18 195/124 H 96 06/30/19 15:40 06/30/19 15:40 06/30/19 15:40 06/30/19 15:40 06/30/19 15:40 Course - Vital Signs Vital signs: Temp Pulse Resp BP Pulse Ox 100.5 F H 113 H 18 195/124 H 96 06/30/19 15:40 06/30/19 15:40 06/30/19 15:40 06/30/19 15:40 06/30/19 15:40 Doctor's Discharge - Discharge Referrals: JAREN MARIE PA-C [Primary Care Provider] - Follow up as needed
--- NOTE | 2019-06-30 16:20 | RADIOLOGY REPORT (SQ) ---
EXAM DESCRIPTION: CHEST SINGLE VIEW COMPLETED DATE/TIME: 06/30/2019 4:05 pm REASON FOR STUDY: fever; cough COMPARISON: 06/22/2019 NUMBER OF VIEWS: One view. TECHNIQUE: Single frontal radiographic view of the chest acquired. LIMITATIONS: None. FINDINGS: LUNGS AND PLEURA: Peribronchial cuffing and interstitial changes. No consolidation, pneumo thorax or effusion. MEDIASTINUM AND HILAR STRUCTURES: No masses. Contour normal. HEART AND VASCULAR STRUCTURES: Heart normal in size. Normal vasculature. BONES: No acute findings. HARDWARE: None in the chest. OTHER: No other significant finding. IMPRESSION: REACTIVE AIRWAY DISEASE VERSUS VIRAL SYNDROME. NO CONSOLIDATION. TECHNICAL DOCUMENTATION: JOB ID: [id number] [id number] 2010 [employer]- All Rights Reserved Reading location - IP/workstation name: [employer]
[2019-06-30] MEDS ORDERED: NORMAL SALINE 1000 ML 1,000 ML IV ONE (17:11)
--- NOTE | 2019-06-30 17:24 | ER Document Report ---
ED Flu Like - General Chief Complaint: Flu Symptoms Stated Complaint: FEVER/CONGESTION/WEAKNESS Time Seen by Provider: 06/30/19 15:51 Primary Care Provider: JAREN MARIE PA-C [PHYSICIAN [facility] STILL OPERATOR] - Follow up in 3-5 days TRAVEL OUTSIDE OF THE [place] IN LAST 30 DAYS: No - HPI Notes: 39-year-old female to the emergency department with complaints of body aches, cough, fevers, chills since yesterday. She states that her youngest child just recently got diagnosed with the flu. She states that she has been taking Motrin for fever control. She states that she is allergic to Tylenol. Denies vomiting but has been nauseated. Denies any diarrhea. - Related Data Allergies/Adverse Reactions: latex [Latex] Allergy (Severe, Verified 11/09/18 15:17) Hives hydrochlorothiazide [Hydrochlorothiazide] Allergy (Unknown, Verified 11/09/18 15:17) Hives acetaminophen [From Tylenol] Allergy (Verified 11/09/18 17:23) amlodipine [From Norvasc] Allergy (Verified 11/09/18 15:17) amoxicillin [Amoxicillin] Allergy (Verified 11/09/18 15:17) lisinopril [Lisinopril] Adverse Reaction (Unknown, Verified 11/09/18 15:17) Hives Past Medical History - General Information source: Patient - Social History Smoking Status: Never Smoker Frequency of alcohol use: None Drug Abuse: None Family History: CAD, DM, Hyperlipidemia, Hypertension, Other - lupus Patient has suicidal ideation: No Patient has homicidal ideation: No - Past Medical History Cardiac Medical History: Reports: Hx Hypertension Denies: Hx Coronary Artery Disease, Hx Heart Attack Pulmonary Medical History: Reports: Hx Pneumonia Denies: Hx Asthma, Hx Bronchitis, Hx COPD Neurological Medical History: Reports: Hx Migraine. Denies: Hx Cerebrovascular Accident, Hx Seizures Endocrine Medical History: Denies: Hx Diabetes Mellitus Type 2, Hx Hypothyroidism Renal/ Medical History: Denies: Hx End Stage Renal Disease, Hx Peritoneal Dialysis, Hx Renal Insufficiency GI Medical History: Reports: Hx Gastritis, Hx Gastroesophageal Reflux Disease Musculoskeletal Medical History: Reports Hx Arthritis, Reports Hx Fibromyalgia Psychiatric Medical History: Reports: Hx Anxiety Past Surgical History: Reports: Hx Gynecologic Surgery - bilateral oophorectomy; hysterectomy., Hx Hysterectomy - Immunizations Immunizations up to date: Yes Hx Diphtheria, Pertussis, Tetanus Vaccination: Yes Review of Systems - Review of Systems Constitutional: Chills, Fever, Weakness EENT: Nose congestion, Nose discharge Cardiovascular: denies: Chest pain, Palpitations, Heart racing, Orthopnea, Dizziness, Lightheaded Respiratory: Cough. denies: Short of breath Gastrointestinal: Nausea. denies: Abdominal pain, Diarrhea, Vomiting Genitourinary: denies: Frequency, Flank pain Musculoskeletal: Back pain, Muscle pain - body aches Skin: No symptoms reported. denies: Rash Neurological/Psychological: No symptoms reported -: Yes All other systems reviewed and negative Physical Exam - Vital signs Vitals: Temp Pulse Resp BP Pulse Ox 100.5 F H 113 H 18 195/124 H 96 06/30/19 15:40 06/30/19 15:40 06/30/19 15:40 06/30/19 15:40 06/30/19 15:40 Interpretation: Tachycardic, Febrile - General General appearance: Appears well, Alert In distress: None - HEENT Head: Normocephalic, Atraumatic Eyes: Normal Pupils: PERRL - Respiratory Respiratory status: No respiratory distress Chest status: Nontender Breath sounds: Nonproductive cough. No: Rales, Rhonchi, Wheezing Chest palpation: Normal - Cardiovascular Rhythm: Regular Heart sounds: Normal auscultation Murmur: No - Abdominal Inspection: Normal Distension: No distension Bowel sounds: Normal Tenderness: Nontender. 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 Patient is feeling better after medicines and fluids here. Her blood work is reassuring and her chest x-ray does not show pneumonia. Will discharge home with Tamiflu and gave her side effect profile as well as albuterol, Promethazine DM, Motrin and Zofran. Encouraged her to push fluids. Encouraged her to return if worsening symptoms. She agrees with the plan. PCP follow-up. - Vital Signs Vital signs: Temp Pulse Resp BP Pulse Ox 99.3 F 83 16 170/101 H 98 06/30/19 18:51 06/30/19 18:51 06/30/19 18:51 06/30/19 18:51 06/30/19 18:51 - Laboratory Result Diagrams: 06/30/19 17:40 06/30/19 17:40 Laboratory results interpreted by me: 06/30/19 17:40 Total Protein 9.1 H - Diagnostic Test Radiology reviewed: Image reviewed, Reports reviewed Discharge - Discharge Clinical Impression: Influenza A, Body aches, Cough Headache Qualifiers: Headache type: unspecified Headache chronicity pattern: acute headache Intractability: not intractable Qualified Code(s): R51 - Headache Hypertension Qualifiers: Hypertension type: essential hypertension Qualified Code(s): I10 - Essential (primary) hypertension Condition: Stable Disposition: HOME, SELF-CARE Instructions: Influenza ([facility]) Additional Instructions: PUSH FLUIDS. REST AT HOME. RETURN IF WORSENING SYMPTOMS. TAKE MEDICINES PRESCRIBED. FOLLOW UP WITH PRIMARY CARE. TAMIFLU CAN BE USED FOR THE FLU. IT CAN GIVE YOU SOME NAUSEA AND DIARRHEA. FOLLOW UP WITH YOUR PRIMARY CARE PHYSICIAN. Prescriptions: Ondansetron [Zofran Odt 4 mg Tablet] 1 - 2 tab PO Q4HP PRN #10 tab.rapdis PRN Reason: Albuterol Sulfate [Albuterol Sulfate Hfa] 2 puff IH Q4H #1 hfa.aer.ad Ibuprofen [Motrin 800 mg Tablet] 800 mg PO Q8H PRN #30 tab PRN Reason: Promethazine/Dextromethorphan [Promethazine-Dm Syrup] 5 ml PO Q6H #120 ml Oseltamivir Phosphate [Tamiflu 75 mg Capsule] 75 mg PO BID #10 capsule Albuterol Sulfate [Ventolin 0.083% Neb 2.5 mg/3 mL Ampul] 1 vial NEB Q4 #10 vial Referrals: JAREN MARIE PA-C [PHYSICIAN [facility] STILL OPERATOR] - Follow up in 3-5 days
[2019-06-30 17:37] LABS: A TYPE INFLUENZA AG POSITIVE (NEGATIVE); B INFLUENZA AG NEGATIVE (NEGATIVE)
[2019-06-30] MEDS ORDERED: TRAMADOL HCL 50 MG TABLET PO ONE (18:22)
[2019-06-30 18:26] LABS: ABSOLUTE LYMPHOCYTES (AUTO) 0.9 10^3/uL (0.5-4.7); ABSOLUTE MONOCYTES (AUTO) 0.4 10^3/uL (0.1-1.4); ABSOLUTE NEUT (AUTO) 3.6 10^3/uL (1.7-8.2); BASOPHILS % (AUTO) 0.7 % (0-2); EOSINOPHILS % (AUTO) 0.4 % (0-6); HEMATOCRIT 40.9 % (36.0-47.0); HEMOGLOBIN 14.5 g/dL (12.0-15.5); LYMPHOCYTES % (AUTO) 17.7 % (13-45); MEAN CORPUSCULAR HEMOGLOBIN 31.5 pg (27.0-33.4); MEAN CORPUSCULAR HGB CONC 35.5 g/dL (32.0-36.0); MEAN CORPUSCULAR VOLUME 89 fl (80-97); MONOCYTES % (AUTO) 8.1 % (3-13); PLATELET COUNT 232 10^3/uL (150-450); RED CELL DISTRIBUTION WIDTH 13.7 % (11.5-14.0); SEGMENTED NEUTROPHILS % (AUTO) 73.1 % (42-78); TOTAL CELLS COUNTED % (AUTO) 100 %; WHITE BLOOD COUNT 4.9 10^3/uL (4.0-10.5)
[2019-06-30 18:41] LABS: ALBUMIN 4.6 g/dL (3.5-5.0); ALKALINE PHOSPHATASE 87 U/L (38-126); ANION GAP 10 (5-19); ASPARTATE AMINO TRANSFERASE 30 U/L (14-36); BILIRUBIN,DIRECT 0.3 mg/dL (0.0-0.4); BILIRUBIN,TOTAL 0.5 mg/dL (0.2-1.3); BLOOD UREA NITROGEN 11 mg/dL (7-20); CALCIUM 9.3 mg/dL (8.4-10.2); CARBON DIOXIDE 30 mmol/L (22-30); CHLORIDE 100 mmol/L (98-107); GLUCOSE 88 mg/dL (75-110); POTASSIUM 4.4 mmol/L (3.6-5.0); TOTAL PROTEIN 9.1 g/dL (6.3-8.2)
[2019-06-30 18:52] VITALS: BP 170/101
== END 2019-06-30 19:22 | disposition home or self-care (01) ==
LOC: ER 15:26
DX: J11.1 Influenza due to unidentified influenza virus with other respiratory manifestations (principal); R50.9 Fever, unspecified; R53.1 Weakness; R05 Cough; I10 Essential (primary) hypertension; Z91.040 Latex allergy status; Z88.6 Allergy status to analgesic agent; Z88.0 Allergy status to penicillin; Z90.710 Acquired absence of both cervix and uterus
CPT/HCPCS: 99283; 96360; 36415; 85025; 80053; 87804; 71045; S0119; J7030

== ENCOUNTER 2020-05-21 20:21 | Emergency (ER) | payer BC, OTHER ==
[2020-05-21] MEDS ORDERED: CLONIDINE HCL 0.1 MG TABLET PO ONE (21:04)
--- NOTE | 2020-05-21 21:06 | ER Document Report ---
ED Medical Screen (RME) - General Chief Complaint: High Blood Pressure Stated Complaint: HIGH BLOOD PRESSURE CHEST PAIN Time Seen by Provider: 05/21/20 21:03 Primary Care Provider: SYDNEY DELEON FNP-C [Primary Care Provider] - Follow up as needed Notes: HPI: 40-year-old female with history of hypertension presenting for hypertension and chest pain. Ongoing for 2 to 3 days. Recent medication changes by her PCP. On a clonidine patch as well as an oral medication but states they are not working. Today she has a very slight right-sided headache, some anterior chest discomfort. PHYSICAL EXAMINATION: Patient is significantly hypertensive, regular rate and rhythm lung sounds are clear to auscultation. No facial droop no slurred speech I have greeted and performed a rapid initial assessment of this patient. A comprehensive ED assessment and evaluation of the patient, analysis of test results and completion of medical decision making process will be conducted by an additional ED providers. Please note that clinical decision making for this patient was made during the 2019 pandemic of novel coronavirus which caused a significant strain on the healthcare system including at this particular facility. Criteria for admission discharge and level of care decisions as well as treatment decisions have necessarily changed TRAVEL OUTSIDE OF THE [place] IN LAST 30 DAYS: No - Related Data Allergies/Adverse Reactions: latex [Latex] Allergy (Severe, Verified 11/09/18 15:17) Hives hydrochlorothiazide [Hydrochlorothiazide] Allergy (Unknown, Verified 11/09/18 15:17) Hives acetaminophen [From Tylenol] Allergy (Verified 11/09/18 17:23) amlodipine [From Norvasc] Allergy (Verified 11/09/18 15:17) amoxicillin [Amoxicillin] Allergy (Verified 11/09/18 15:17) lisinopril [Lisinopril] Adverse Reaction (Unknown, Verified 11/09/18 15:17) Hives Past Medical History - Past Medical History Cardiac Medical History: Reports: Hx Hypertension Denies: Hx Coronary Artery Disease, Hx Heart Attack Pulmonary Medical History: Reports: Hx Pneumonia Denies: Hx Asthma, Hx Bronchitis, Hx COPD Neurological Medical History: Reports: Hx Migraine. Denies: Hx Cerebrovascular Accident, Hx Seizures Endocrine Medical History: Denies: Hx Diabetes Mellitus Type 2, Hx Hypothyroidism Renal/ Medical History: Denies: Hx End Stage Renal Disease, Hx Peritoneal Dialysis, Hx Renal Insufficiency GI Medical History: Reports: Hx Gastritis, Hx Gastroesophageal Reflux Disease Musculoskeltal Medical History: Reports Hx Arthritis, Reports Hx Fibromyalgia Psychiatric Medical History: Reports: Hx Anxiety Past Surgical History: Reports: Hx Gynecologic Surgery - bilateral oophorectomy; hysterectomy., Hx Hysterectomy - Immunizations Immunizations up to date: Yes Hx Diphtheria, Pertussis, Tetanus Vaccination: Yes Physical Exam - Vital signs Vitals: Temp Pulse Resp BP Pulse Ox 98.1 F 78 16 209/132 H 97 05/21/20 20:41 05/21/20 20:41 05/21/20 20:41 05/21/20 20:41 05/21/20 20:41 Course - Vital Signs Vital signs: Temp Pulse Resp BP Pulse Ox 98.1 F 78 16 209/132 H 97 05/21/20 20:41 05/21/20 20:41 05/21/20 20:41 05/21/20 20:41 05/21/20 20:41 Doctor's Discharge - Discharge Referrals: SYDNEY DELEON, YOHAN-C [Primary Care Provider] - Follow up as needed
--- NOTE | 2020-05-21 22:47 | RADIOLOGY REPORT (SQ) ---
EXAM: CHEST SINGLE VIEW CLINICAL INDICATION: 40-year-old female with chest pain and hypertension. TECHNIQUE: Single view, AP portable chest was obtained. COMPARISON: 06/30/2019. FINDINGS: Unremarkable cardiac and mediastinal silhouette. Heart size is normal. Low lung volumes grossly clear without focal opacity, pneumothorax or pleural effusions. The visualized bones are within normal limits. Surgical clips at the level of the thoracic inlet. IMPRESSION: No acute cardiopulmonary abnormalities.
[2020-05-21] MEDS ORDERED: HYDRALAZINE HCL INJ/PF 20 MG/1 ML SDV IV ONE (23:13)
[2020-05-21 23:22] LABS: HEMATOCRIT 37.9 % (36.0-47.0); HEMOGLOBIN 13.1 g/dL (12.0-15.5); MEAN CORPUSCULAR HEMOGLOBIN 30.8 pg (27.0-33.4); MEAN CORPUSCULAR HGB CONC 34.6 g/dL (32.0-36.0); MEAN CORPUSCULAR VOLUME 89 fl (80-97); PLATELET COUNT 241 10^3/uL (150-450); RED BLOOD COUNT 4.25 10^6/uL (3.72-5.28); RED CELL DISTRIBUTION WIDTH 13.5 % (11.5-14.0); WHITE BLOOD COUNT 6.2 10^3/uL (4.0-10.5)
--- NOTE | 2020-05-21 23:27 | ER Document Report ---
ED General - General Chief Complaint: Chest Pain Stated Complaint: HIGH BLOOD PRESSURE CHEST PAIN Time Seen by Provider: 05/21/20 21:03 Primary Care Provider: SYDNEY DELEON FNP-C [Primary Care Provider] - Follow up as needed TRAVEL OUTSIDE OF THE [place] IN LAST 30 DAYS: No - HPI Notes: Patient is a 40-year-old female presents emergency department for evaluation of elevated blood pressure. Patient states she started checking her blood pressure daily since Saturday. She states she normally runs from the 160s to the 180s over 90s. She states she has had blood pressures in the 200s over 100s since Saturday. She has some right sided chest and flank pain, she is concerned because this is the area where she was told she had an adrenal tumor. Patient states that she was started on edarbi several months ago, she thought it was helping. She really did not check her blood pressure daily prior to this on Saturday. She was being seen by [facility], she states that she had a cortisol test done and was told it was abnormal. She had a repeated cortisol test performed and has had some difficulty contacting providers in regards to interpretation. She states that the patient portal does report these is abnormal. She has been unable to have a follow-up appointment, is unsure at this time as to what the actual plan is. She denies any difficulty speaking or swallowing, states she feels like her throat is dry. She has some right-sided chest and flank pain that she describes as sharp, made worsened by deep breath. She denies any associated nausea, diaphoresis, shortness of breath, near syncope. She does feel like she is urinating more frequently than normal. - Related Data Allergies/Adverse Reactions: latex [Latex] Allergy (Severe, Verified 11/09/18 15:17) Hives hydrochlorothiazide [Hydrochlorothiazide] Allergy (Unknown, Verified 11/09/18 15:17) Hives acetaminophen [From Tylenol] Allergy (Verified 11/09/18 17:23) amlodipine [From Norvasc] Allergy (Verified 11/09/18 15:17) amoxicillin [Amoxicillin] Allergy (Verified 11/09/18 15:17) lisinopril [Lisinopril] Adverse Reaction (Unknown, Verified 11/09/18 15:17) Hives Home Medications: clonidine patch. edarbi. protonix. mvi. vitamin d3. vitamin c. [place] Past Medical History - General Information source: Patient - Social History Smoking Status: Former Smoker Chew tobacco use (# tins/day): No Drug Abuse: None Family History: CAD, DM, Hyperlipidemia, Hypertension, Other - lupus Patient has homicidal ideation: No - Medical History Medical History: Other - Sarcoidosis - Past Medical History Cardiac Medical History: Reports: Hx Hypertension Denies: Hx Coronary Artery Disease, Hx Heart Attack Pulmonary Medical History: Reports: Hx Pneumonia Denies: Hx Asthma, Hx Bronchitis, Hx COPD Neurological Medical History: Reports: Hx Migraine. Denies: Hx Cerebrovascular Accident, Hx Seizures Endocrine Medical History: Denies: Hx Diabetes Mellitus Type 2, Hx Hypothyroidism Renal/ Medical History: Denies: Hx End Stage Renal Disease, Hx Peritoneal Dialysis, Hx Renal Insufficiency GI Medical History: Reports: Hx Gastritis, Hx Gastroesophageal Reflux Disease Musculoskeletal Medical History: Reports Hx Arthritis, Reports Hx Fibromyalgia Psychiatric Medical History: Reports: Hx Anxiety Past Surgical History: Reports: Hx Gynecologic Surgery - bilateral oophorectomy; hysterectomy., Hx Hysterectomy - Immunizations Immunizations up to date: Yes Hx Diphtheria, Pertussis, Tetanus Vaccination: Yes Review of Systems - Review of Systems Constitutional: No symptoms reported EENT: No symptoms reported Cardiovascular: See HPI Respiratory: No symptoms reported Gastrointestinal: No symptoms reported Genitourinary: See HPI Musculoskeletal: No symptoms reported Skin: No symptoms reported Neurological/Psychological: No symptoms reported Physical Exam - Vital signs Vitals: Temp Pulse Resp BP Pulse Ox 98.1 F 78 16 209/132 H 97 05/21/20 20:41 05/21/20 20:41 05/21/20 20:41 05/21/20 20:41 05/21/20 20:41 - Notes Notes: This is a pleasant 40-year-old female appears her stated age, no acute distress. She is anxious in appearance, but cooperative with examiner. Vital signs reviewed, please refer to chart. Head is normocephalic, atraumatic. Pupils equal round, reactive to light. Neck is supple without meningismus. Heart is regular rate and rhythm. Lungs are clear to auscultation bilaterally. No abnormalities on evaluation of the chest wall. Patient is tender to palpation over the midaxillary line and moving posteriorly from ribs T8-10 on the right. No overlying skin changes. Abdomen is soft, nontender, normoactive bowel sounds throughout. Extremities without cyanosis, clubbing. Posterior calves are nontender. Peripheral pulses are equal. Skin is warm and dry. Dyshidrotic skin noted to the distal legs. Patient is awake, alert, neurological exam is nonfocal. Course - Re-evaluation Re-evalutation: 05/21/20 23:26 Patient presents emergency department for evaluation. Laboratory investigations were as ordered. She is hypertensive here. No she was given clonidine at the outset, I will give her some hydralazine. She is not really showing any signs of endorgan damage here, I am waiting labs at this time. She is complaining of some urinary symptoms so urinalysis was ordered. Her EKG fails to show any signs of ischemia or infarction. I do suspect that the patient's blood pressure is frequently high and she has just only started recently checking it. She is also anxious in appearance, I do suspect that is contributing as well. Also explained to her that it is important that she follow-up in regards to this adrenal mass, especially if it seems to be active, as it could be contributing to her high blood pressure, and any medication changes should be done to her [facility] care provider supervision. She has multiple allergies. She voiced understanding. She is currently stable, we will continue to monitor. 05/21/20 23:29 Unfortunately, hydralazine is on backorder. We will try some Ativan, as again I do believe there is some anxiety component to this blood pressure. 05/22/20 01:10 Patient's blood pressures improved markedly. She is resting comfortably, has no pain complaints. We talked at length about blood pressure control, I told her she needs to follow-up with her primary care provider in regards to this issue. She needs to continue to check her blood pressure regularly, but she should not check it more than once a day. Keep a record of this and follow-up closely. She voiced understanding was discharged. - Vital Signs Vital signs: Temp Pulse Resp BP Pulse Ox 98.1 F 78 12 165/73 H 99 05/21/20 21:00 05/21/20 20:41 05/22/20 00:01 05/22/20 00:01 05/22/20 00:01 - Laboratory Results Result Diagrams: 05/21/20 22:50 05/21/20 22:50 Laboratory Results Interpreted: 05/21/20 05/21/20 05/21/20 22:50 22:50 23:35 Lymphocytes % (Manual) 47 H Carbon Dioxide 32 H Anion Gap 4 L Urine Ketones TRACE H Critical Laboratory Results Reviewed: No Critical Results - Radiology Results Radiology Results Interpreted: 05/21/20 23:30 Chest X-Ray 05/21/20 21:04 IMPRESSION: No acute cardiopulmonary abnormalities. Critical Radiology Results Reviewed: No Critical Results - EKG Interpretation by Me Additional EKG results interpreted by me: 05/21/20 23:30 Sinus mechanism with a rate of 67 bpm. Normal axis and intervals. No acute ST changes concerning for ischemia or infarction. Discharge - Discharge Clinical Impression: Hypertension Qualifiers: Hypertension type: unspecified Qualified Code(s): I10 - Essential (primary) hypertension Condition: Stable Disposition: HOME, SELF-CARE Instructions: High Blood Pressure ([facility]), High Blood Pressure, Requiring Treatment ([facility]) Additional Instructions: Please keep a record of your blood pressures at home. Cannot take your blood pressure more than once a day. Follow-up with your primary care provider for any possible medication adjustments. You should also continue to seek out care regarding your abnormal labs/possible adrenal mass. If you develop worsening or new concerning symptoms of any sort, please return immediately to the emergency department for evaluation. Referrals: SYDNEY DELEON FNP-C [Primary Care Provider] - Follow up as needed
[2020-05-21] MEDS ORDERED: LORAZEPAM INJ 2 MG/1 ML VIAL IV ONE (23:28)
[2020-05-21 23:43] LABS: ALKALINE PHOSPHATASE 83 U/L (38-126); ASPARTATE AMINO TRANSFERASE 24 U/L (14-36); BILIRUBIN,DIRECT 0.2 mg/dL (0.0-0.4); BILIRUBIN,TOTAL 0.4 mg/dL (0.2-1.3); BLOOD UREA NITROGEN 17 mg/dL (7-20); CALCIUM 9.2 mg/dL (8.4-10.2); GLUCOSE 94 mg/dL (75-110); POTASSIUM 3.9 mmol/L (3.6-5.0); TOTAL PROTEIN 7.3 g/dL (6.3-8.2)
[2020-05-21 23:47] LABS: ABSOLUTE MONOCYTES # (MANUAL) 0.4 10^3/uL (0.1-1.4); BASOPHILS % (MANUAL) 0 % (0-2); EOSINOPHILS % (MANUAL) 2 % (0-6); LYMPHOCYTES % (MANUAL) 47 % (13-45); MONOCYTES % (MANUAL) 7 % (3-13); SEGMENTED NEUTROPHILS % (MAN) 42 % (42-78); TOTAL CELLS COUNTED 100
[2020-05-21 23:48] LABS: CARBON DIOXIDE 32 mmol/L (22-30); CHLORIDE 102 mmol/L (98-107); PLATELET COMMENT ADEQUATE; RBC MORPHOLOGY COMMENT NORMO-CYTIC/CHROMIC
[2020-05-22 00:05] LABS: ANION GAP 4 (5-19)
[2020-05-22 00:05] LABS: APPEARANCE,URINE CLEAR; BILIRUBIN,URINE NEGATIVE (NEGATIVE); COLOR,URINE YELLOW; GLUCOSE, URINE NEGATIVE (NEGATIVE); KETONES,URINE TRACE mg/dL (NEGATIVE); LEUKOCYTE ESTERASE,URINE NEGATIVE (NEGATIVE); NITRITE,URINE NEGATIVE (NEGATIVE); PROTEIN,URINE NEGATIVE (NEGATIVE); URINE SPECIFIC GRAVITY 1.017; UROBILINOGEN,URINE NEGATIVE mg/dL (<2.0)
[2020-05-22 01:24] VITALS: BP 116/98
--- NOTE | 2020-05-22 20:30 | EKG REPORT ---
SEVERITY:- NORMAL ECG - SINUS RHYTHM : Confirmed by: Jessy Brink MD 22-May-2020 20:29:48
--- NOTE | 2020-05-24 07:33 | EKG REPORT ---
SEVERITY:- OTHERWISE NORMAL ECG - SINUS TACHYCARDIA : Confirmed by: Ney Malik MD 24-May-2020 07:31:59
== END 2020-05-22 01:35 | disposition home or self-care (01) ==
LOC: ER 20:21
DX: I10 Essential (primary) hypertension (principal); K21.9 Gastro-esophageal reflux disease without esophagitis; R07.9 Chest pain, unspecified; R10.9 Unspecified abdominal pain; Z79.899 Other long term (current) drug therapy; Z91.040 Latex allergy status; Z88.8 Allergy status to other drugs, medicaments and biological substances; Z88.0 Allergy status to penicillin; Z87.891 Personal history of nicotine dependence; Z82.49 Family history of ischemic heart disease and other diseases of the circulatory system
CPT/HCPCS: 93005; 99285; 96374; 36415; 85025; 80053; 81001; 84484; 71045; 93010; J2060

== ENCOUNTER 2020-05-23 20:30 | Emergency (ER) | payer OTHER ==
--- NOTE | 2020-05-23 20:52 | ER Document Report ---
ED Medical Screen (RME) - General Chief Complaint: Arrhythmia Stated Complaint: HEART RACING Time Seen by Provider: 05/23/20 20:48 Primary Care Provider: SYDNEY DELEON FNP-C [Primary Care Provider] - Follow up as needed Notes: HPI: 40-year-old female with history of hypertension seen 2 days ago for tachycardia and hypertension. States she is never completely felt better. Was recently started on a new medication by her PCP for hypertension which prompted her prior visit 2 days ago. Patient states that she was cooking tonight and felt her heart racing, states she became diaphoretic and has some tightness in t he back now. PHYSICAL EXAMINATION: Patient is mildly tachycardic. She is very anxious. Lung sounds are clear to auscultation I have greeted and performed a rapid initial assessment of this patient. A comprehensive ED assessment and evaluation of the patient, analysis of test results and completion of medical decision making process will be conducted by an additional ED providers. Please note that clinical decision making for this patient was made during the 2019 pandemic of novel coronavirus which caused a significant strain on the healthcare system including at this particular [facility]. Criteria for admission discharge and level of care decisions as well as treatment decisions have necessarily changed TRAVEL OUTSIDE OF THE [place] IN LAST 30 DAYS: No - Related Data Allergies/Adverse Reactions: latex [Latex] Allergy (Severe, Verified 05/23/20 20:49) Hives hydrochlorothiazide [Hydrochlorothiazide] Allergy (Unknown, Verified 05/23/20 20:49) Hives acetaminophen [From Tylenol] Allergy (Verified 05/23/20 20:49) amlodipine [From Norvasc] Allergy (Verified 05/23/20 20:49) amoxicillin [Amoxicillin] Allergy (Verified 05/23/20 20:49) lisinopril [Lisinopril] Adverse Reaction (Unknown, Verified 05/23/20 20:49) Hives Past Medical History - Past Medical History Cardiac Medical History: Reports: Hx Hypertension Denies: Hx Coronary Artery Disease, Hx Heart Attack Pulmonary Medical History: Reports: Hx Pneumonia Denies: Hx Asthma, Hx Bronchitis, Hx COPD Neurological Medical History: Reports: Hx Migraine. Denies: Hx Cerebrovascular Accident, Hx Seizures Endocrine Medical History: Denies: Hx Diabetes Mellitus Type 2, Hx Hypothyroidism Renal/ Medical History: Denies: Hx End Stage Renal Disease, Hx Peritoneal Dialysis, Hx Renal Insufficiency GI Medical History: Reports: Hx Gastritis, Hx Gastroesophageal Reflux Disease Musculoskeltal Medical History: Reports Hx Arthritis, Reports Hx Fibromyalgia Psychiatric Medical History: Reports: Hx Anxiety Past Surgical History: Reports: Hx Gynecologic Surgery - bilateral oophorectomy; hysterectomy., Hx Hysterectomy - Immunizations Immunizations up to date: Yes Hx Diphtheria, Pertussis, Tetanus Vaccination: Yes Doctor's Discharge - Discharge Referrals: SYDNEY DELEON FNP-C [Primary Care Provider] - Follow up as needed
--- NOTE | 2020-05-23 21:17 | ER Document Report ---
ED General - General Chief Complaint: Irregular Pulse Stated Complaint: HEART RACING Time Seen by Provider: 05/23/20 20:48 Primary Care Provider: SYDNEY DELEON FNP-C [NO LOCAL MD] - Follow up as needed TRAVEL OUTSIDE OF THE [place] IN LAST 30 DAYS: No - HPI Notes: 40-year-old female presents with concerns for high blood pressure and high heart rate, multiple complaints as well. Patient states that this evening she was cooking, she felt her heart racing. She went to lay down and took her blood pressure and it was very high. Patient states she has a long history of high blood pressure and has been on multiple medications in the past. She is currently on a clonidine patch and Edarbi (azilsartan). The Edarbi dose was just increased to 80 mg on Saturday, 2 days ago. Her primary care doctor has also written her for hydralazine 10 mg 4 times daily, she has the prescription filled but has not yet started taking this medication. She has been on a clonidine patch for over a year. Patient states she was seen in the emergency department 2 days ago for similar symptoms. She was given Ativan, which she reports made her feel sleepy that night and the next day. Patient states that she has a history of a right-sided adrenal tumor, she is unsure of the diagnosis, it was discovered in 2009. She states that at one point she was that it was benign after she had a PET scan done, however it has never been biopsied and really no further work-up or attention has been given to this in over 5 years. She also states that she had an abnormal cortisol test in March. She was supposed to have a 2-day confirmatory test, however this has not been scheduled and she states she is having difficulty getting an appointment with the cellular plastics cutter. Patient states that she will frequently have these episodes of high blood pressure, high heart rate, anxiety, extremities tingling, feeling flushed and sweaty. These episodes have been occurring for several years. Patient also complains that she has not had a bowel movement in 2 days and is having some central abdominal pain. She is concerned maybe she did not swallow one of her pills and it is stuck. Also states she is having increasing acid reflux symptoms. Patient also states that she noticed a painful area to her left leg today, denies any known injuries, does states she has a history of fibromyalgia, pain is worse when touching the area. She also reports that she might have pulled her right hip today. She was shopping with her daughter who is , she was lifting a stroller and felt pain to her right hip. - Related Data Allergies/Adverse Reactions: latex [Latex] Allergy (Severe, Verified 05/23/20 20:49) Hives hydrochlorothiazide [Hydrochlorothiazide] Allergy (Unknown, Verified 05/23/20 20:49) Hives acetaminophen [From Tylenol] Allergy (Verified 05/23/20 20:49) amlodipine [From Norvasc] Allergy (Verified 05/23/20 20:49) amoxicillin [Amoxicillin] Allergy (Verified 05/23/20 20:49) lisinopril [Lisinopril] Adverse Reaction (Unknown, Verified 05/23/20 20:49) Hives Home Medications: CLONIDINE. HYDRALAZINE Past Medical History - Social History Smoking Status: Former Smoker Frequency of alcohol use: None Drug Abuse: Marijuana Family History: CAD, DM, Hyperlipidemia, Hypertension, Other - lupus - Past Medical History Cardiac Medical History: Reports: Hx Hypertension Denies: Hx Coronary Artery Disease, Hx Heart Attack Pulmonary Medical History: Reports: Hx Pneumonia Denies: Hx Asthma, Hx Bronchitis, Hx COPD Neurological Medical History: Reports: Hx Migraine. Denies: Hx Cerebrovascular Accident, Hx Seizures Endocrine Medical History: Denies: Hx Diabetes Mellitus Type 2, Hx Hypothyroidism Renal/ Medical History: Denies: Hx End Stage Renal Disease, Hx Peritoneal Dialysis, Hx Renal Insufficiency GI Medical History: Reports: Hx Gastritis, Hx Gastroesophageal Reflux Disease Musculoskeletal Medical History: Reports Hx Arthritis, Reports Hx Fibromyalgia Psychiatric Medical History: Reports: Hx Anxiety Past Surgical History: Reports: Hx Gynecologic Surgery - bilateral oophorectomy; hysterectomy., Hx Hysterectomy - Immunizations Immunizations up to date: Yes Hx Diphtheria, Pertussis, Tetanus Vaccination: Yes Physical Exam - Vital signs Vitals: Temp Pulse Resp BP Pulse Ox 98.3 F 115 H 16 158/110 H 100 05/23/20 20:50 05/23/20 20:50 05/23/20 20:50 05/23/20 20:50 05/23/20 20:50 Course - Re-evaluation Re-evalutation: 40-year-old female with history of hypertension, fairly resistant per her repor t, here with episode of tachycardia and hypertension at home. Seen in the emergency department 2 days ago for same, had reassuring work-up at the time. On exam she is anxious, however nontoxic-appearing. Her tachycardia resolved while in the room talking with her, she does remain hypertensive. We will try an oral dose of her hydralazine. In terms of the hip/leg pain, I do not really find any focal tenderness, possible she strained these areas, possible related to fibromyalgia. No use of exogenous estrogen. Additionally reporting abdominal pain, she states a history of small bowel obstruction due to a very large cyst which required surgery. She currently does not have any obstructive symptoms at this time, her abdomen is soft and without focal area of tenderness. I have ordered a KUB and Pepcid. Patient has a long detailed history dating back over 10 years ago. Has been diagnosed with an adrenal tumor, at one point told it was benign, however has really not had any further work-up since. I am wondering if she potentially has a pheochromocytoma given these repeated episodes of hypertension, tachycardia, sense of doom and sweating. I discussed with her to address this with her cellular plastics cutter, apparently she is also undergoing work-up for an elevated cortisol level. 05/23/20 23:44 No leukocytosis or left shift. No acute anemia. Electrolytes within normal limits. Creatinine within normal limits. LFTs within normal limits. Troponin negative. Acute abdominal series read as no obstruction, has moderate stool 05/24/20 00:33 And update patient and discussed her work-up which is currently reassuring. I did noted that her blood pressure had improved however was starting to go up again. She states that she just had to stressful phone calls. She was informed that her aunt is currently being taken to the emergency department via EMS for respiratory issues and likely Covid. She is also on the phone with her grandmother and had intended on telling grandmother she was in the hospital but told her anyways and that his greatly stressed her out. Patient again appears anxious. She continues to complain of a chest tightness. I discussed with her will obtain CTA chest to rule out PE versus enlarged lymph nodes given her history of sarcoidosis, though low suspicion for these. 05/24/20 01:27 CTA has resulted. Per radiology no PE, lungs clear, intrathoracic lymph nodes are not enlarged 05/24/20 02:05 Patient was updated on CT results. We again had another long discussion about her symptoms. Patient is now stating that potentially she might be having a panic attack, as this episode feels similar to a panic attack that she had a couple of years ago. She also reports that the Ativan she received 2 days ago greatly improved her symptoms at the time and she would now like to try another dose. 05/24/20 03:07 Troponin undetectable x2 05/24/20 03:22 Blood pressure has down trended by 20 points 05/24/20 03:29 Rediscussed reassuring thorough work-up today with patient and her . I again encouraged her to please have very close follow-up with her cellular plastics cutter and discuss reworking up the adrenal mass. I instructed her to begin the hydralazine which was prescribed to her. She verbalized understanding. Return precautions given, stable at time of discharge. - Vital Signs Vital signs: Temp Pulse Resp BP Pulse Ox 98.3 F 115 H 12 180/94 H 99 05/23/20 20:50 05/23/20 20:50 05/24/20 03:17 05/24/20 03:17 05/24/20 03:17 - Laboratory Results Result Diagrams: 05/23/20 22:31 05/23/20 22:31 Laboratory Results Interpreted: 05/23/20 05/23/20 22:28 22:31 Potassium 3.5 L Carbon Dioxide 31 H Total Protein 8.6 H Urine Ketones TRACE H Urine Blood SMALL H Critical Laboratory Results Reviewed: No Critical Results - Radiology Results Critical Radiology Results Reviewed: No Critical Results Discharge - Discharge Clinical Impression: Hypertension Qualifiers: Hypertension type: unspecified Qualified Code(s): I10 - Essential (primary) hypertension Disposition: HOME, SELF-CARE Additional Instructions: Please continue all blood pressure medicines as prescribed. Please follow-up with your cellular plastics cutter as planned, would also address the adrenal tumor and if this should be revisited for work-up. As discussed, you may choose to esta blish with a new primary care doctor or cellular plastics cutter. Return to the emergency department for any concerning worsening symptoms. Referrals: SYDNEY DELEON, KIA [NO LOCAL MD] - Follow up as needed
[2020-05-23] MEDS ORDERED: HYDRALAZINE HCL 10 MG TABLET PO ONE (21:43)
[2020-05-23] MEDS ORDERED: FAMOTIDINE INJ/PF 20 MG/2 ML SDV IV ONE (21:43)
[2020-05-23 22:48] LABS: APPEARANCE,URINE CLEAR; BILIRUBIN,URINE NEGATIVE (NEGATIVE); COLOR,URINE YELLOW; GLUCOSE, URINE NEGATIVE (NEGATIVE); KETONES,URINE TRACE mg/dL (NEGATIVE); LEUKOCYTE ESTERASE,URINE NEGATIVE (NEGATIVE); NITRITE,URINE NEGATIVE (NEGATIVE); PROTEIN,URINE NEGATIVE (NEGATIVE); URINE SPECIFIC GRAVITY 1.008; UROBILINOGEN,URINE NEGATIVE mg/dL (<2.0)
[2020-05-23 22:48] LABS: ABSOLUTE BASOPHILS # (AUTO) 0.1 10^3/uL (0.0-0.2); ABSOLUTE LYMPHOCYTES (AUTO) 2.3 10^3/uL (0.5-4.7); ABSOLUTE MONOCYTES (AUTO) 0.5 10^3/uL (0.1-1.4); ABSOLUTE NEUT (AUTO) 3.3 10^3/uL (1.7-8.2); BASOPHILS % (AUTO) 1.4 % (0-2); EOSINOPHILS % (AUTO) 0.5 % (0-6); HEMOGLOBIN 13.8 g/dL (12.0-15.5); LYMPHOCYTES % (AUTO) 36.8 % (13-45); MEAN CORPUSCULAR HEMOGLOBIN 30.4 pg (27.0-33.4); MEAN CORPUSCULAR HGB CONC 34.5 g/dL (32.0-36.0); MEAN CORPUSCULAR VOLUME 88 fl (80-97); MONOCYTES % (AUTO) 7.4 % (3-13); PLATELET COUNT 238 10^3/uL (150-450); RED BLOOD COUNT 4.54 10^6/uL (3.72-5.28); RED CELL DISTRIBUTION WIDTH 13.3 % (11.5-14.0); SEGMENTED NEUTROPHILS % (AUTO) 53.9 % (42-78); TOTAL CELLS COUNTED % (AUTO) 100 %; WHITE BLOOD COUNT 6.2 10^3/uL (4.0-10.5)
[2020-05-23 23:07] LABS: ALBUMIN 4.9 g/dL (3.5-5.0); ALKALINE PHOSPHATASE 96 U/L (38-126); ANION GAP 9 (5-19); ASPARTATE AMINO TRANSFERASE 25 U/L (14-36); BILIRUBIN,DIRECT 0.2 mg/dL (0.0-0.4); BILIRUBIN,TOTAL 0.5 mg/dL (0.2-1.3); BLOOD UREA NITROGEN 16 mg/dL (7-20); CARBON DIOXIDE 31 mmol/L (22-30); CHLORIDE 101 mmol/L (98-107); GLUCOSE 89 mg/dL (75-110); POTASSIUM 3.5 mmol/L (3.6-5.0); TOTAL PROTEIN 8.6 g/dL (6.3-8.2)
[2020-05-23] MEDS ORDERED: KETOROLAC TROMETHAMINE INJ/PF 30 MG/1 ML SDV IV ONE (23:17)
[2020-05-23] MEDS ORDERED: CYCLOBENZAPRINE HCL 10 MG TABLET PO ONE (23:17)
--- NOTE | 2020-05-23 23:19 | RADIOLOGY REPORT (SQ) ---
EXAM DESCRIPTION: ACUTE ABDOMEN SERIES, single view the chest and two views of the abdomen CLINICAL HISTORY: 40 years Female, central pain, constipation COMPARISON: Chest radiograph is compared to 05/21/2020 FINDINGS: Chest x-ray: The lungs are clear. No pneumonia or edema. No pneumothorax or pleural effusion. Osseous structures are unremarkable. No free intraperitoneal air. ABDOMEN: There is scattered stool seen throughout the colon. The bowel is not dilated. Overall stool volume is moderate. No air-fluid levels. No free intraperitoneal air. No suspicious calcifications. Multiple phleboliths are present in the pelvis. IMPRESSION: 1. Normal radiograph of the chest. 2. Moderate stool in the colon. No obstruction.
--- NOTE | 2020-05-24 01:25 | RADIOLOGY REPORT (SQ) ---
CLINICAL HISTORY: SOB, CP, eval PE, CREAT 0.95 COMPARISON: 10/15/2014. TECHNIQUE: CT CHEST ANGIOGRAPHY WITH IV CONTRAST on 05/24/2020 12:32 AM TRANSMISSION AND [employer]CTION ENGINEER. MIPS reconstructions were generated. This exam was performed according to our departmental dose-optimization program, which includes automated exposure control, adjustment of the mA and/or kV according to patient size and/or use of iterative reconstruction technique. MIP images were generated. FINDINGS: Thoracic aorta is normal in course and caliber. There is an aberrant right subclavian artery. The heart is normal in size. There is no pericardial effusion. Intrathoracic lymph nodes are not enlarged. There is no pleural effusion, pleural thickening or pneumothorax. Central airways are patent. Lungs are clear with no consolidation, mass or interstitial lung disease. There are no acute abnormalities within the limited images of the upper abdomen. There are no acute osseous findings. No suspicious bony lesions. IMPRESSION: No aortic dissection or aneurysm. No pulmonary embolus. No definite pneumonia.
[2020-05-24] MEDS ORDERED: LORAZEPAM 1 MG TABLET PO ONE (02:04)
[2020-05-24 04:00] VITALS: BP 165/92
== END 2020-05-24 03:45 | disposition home or self-care (01) ==
LOC: ER 20:30
DX: I10 Essential (primary) hypertension (principal); R00.0 Tachycardia, unspecified; R10.9 Unspecified abdominal pain; R19.4 Change in bowel habit; M79.605 Pain in left leg; M25.551 Pain in right hip; X50.0XXA Overexertion from strenuous movement or load, initial encounter; Y93.89 Activity, other specified; R07.89 Other chest pain; Z79.899 Other long term (current) drug therapy; Z87.891 Personal history of nicotine dependence; Z90.49 Acquired absence of other specified parts of digestive tract; Z91.040 Latex allergy status; Z88.8 Allergy status to other drugs, medicaments and biological substances; Z88.0 Allergy status to penicillin
CPT/HCPCS: 99285; 96374; 96375; 36415; 84443; 85025; 80053; 81001; 84484; 74022; 71275; J3490; J1885; S0028

== ENCOUNTER 2020-05-26 01:10 | Emergency (ER) | payer OTHER, MEDICAID ==
--- NOTE | 2020-05-26 02:37 | ER Document Report ---
ED General - General Chief Complaint: Near Syncope Stated Complaint: SHORTNESS OF BREATH Time Seen by Provider: 05/26/20 02:35 Primary Care Provider: ROSSY RODRIGUEZ PA-C [Primary Care Provider] - Follow up as needed Notes: Patient is a 40-year-old female comes emergency department for chief complaint of right-sided chest pain, pain along the right side of her neck, constipation with intermittent pain in her upper abdomen, frequent reflux, belching, along with nausea. She also reports she is constipated but this is typical for her. She denies vomiting, fever, shortness of breath, cough, injury. She states she had a headache earlier but this resolved. She states that she has not felt good since she got evaluated a few days ago. Past medical history includes hypertension on clonidine patch, Edarbi, and recently started on hydralazine (only a couple of doses so far). She also has a history of hysterectomy. She denies recreational drugs, smoking, alcohol. TRAVEL OUTSIDE OF THE [place] IN LAST 30 DAYS: No - Related Data Allergies/Adverse Reactions: latex [Latex] Allergy (Severe, Verified 05/23/20 20:49) Hives hydrochlorothiazide [Hydrochlorothiazide] Allergy (Unknown, Verified 05/23/20 20:49) Hives acetaminophen [From Tylenol] Allergy (Verified 05/23/20 20:49) amlodipine [From Norvasc] Allergy (Verified 05/23/20 20:49) amoxicillin [Amoxicillin] Allergy (Verified 05/23/20 20:49) lisinopril [Lisinopril] Adverse Reaction (Unknown, Verified 05/23/20 20:49) Hives Home Medications: multi vit. vit d3. adarbe (bp med). clonidine patch. hydralazine (??) Past Medical History - General Information source: Patient - Social History Smoking Status: Former Smoker Chew tobacco use (# tins/day): No Frequency of alcohol use: Occasional Drug Abuse: None Lives with: Family Family History: CAD, DM, Hyperlipidemia, Hypertension, Other - lupus - Past Medical History Cardiac Medical History: Reports: Hx Hypertension Denies: Hx Coronary Artery Disease, Hx Heart Attack Pulmonary Medical History: Reports: Hx Pneumonia Denies: Hx Asthma, Hx Bronchitis, Hx COPD Neurological Medical History: Reports: Hx Migraine. Denies: Hx Cerebrovascular Accident, Hx Seizures Endocrine Medical History: Denies: Hx Diabetes Mellitus Type 2, Hx Hypothyroidism Renal/ Medical History: Denies: Hx End Stage Renal Disease, Hx Peritoneal Dialysis, Hx Renal Insufficiency GI Medical History: Reports: Hx Gastritis, Hx Gastroesophageal Reflux Disease Musculoskeletal Medical History: Reports Hx Arthritis, Reports Hx Fibromyalgia Psychiatric Medical History: Reports: Hx Anxiety Past Surgical History: Reports: Hx Gynecologic Surgery - bilateral oophorectomy; hysterectomy., Hx Hysterectomy - Immunizations Immunizations up to date: Yes Hx Diphtheria, Pertussis, Tetanus Vaccination: Yes Review of Systems - Review of Systems Constitutional: See HPI EENT: No symptoms reported Cardiovascular: See HPI Respiratory: See HPI Gastrointestinal: See HPI Genitourinary: No symptoms reported Female Genitourinary: No symptoms reported Musculoskeletal: See HPI Skin: No symptoms reported Hematologic/Lymphatic: No symptoms reported Neurological/Psychological: See HPI Physical Exam - Vital signs Vitals: Temp Pulse Resp BP Pulse Ox 98.0 F 78 18 191/103 H 100 05/26/20 01:30 05/26/20 01:30 05/26/20 01:30 05/26/20 01:30 05/26/20 01:30 - Notes Notes: GENERAL: Alert, interacts well. No acute distress. HEAD: Normocephalic, atraumatic. EYES: Pupils equal, round, and reactive to light. Extraocular movements intact. ENT: Oral mucosa moist, tongue midline. Oropharynx unremarkable. Airway patent. Nares patent, sinuses non-tender, ear canals unremarkable, TM's intact. NECK: Full range of motion. Supple. Trachea midline. No lymphadenopathy. LUNGS: Clear to auscultation bilaterally, no wheezes, rales, or rhonchi. No respiratory distress HEART: Regular rate and rhythm. No murmur ABDOMEN: Soft, non-tender. Non-distended. EXTREMITIES: Moves all 4 extremities spontaneously. No edema, normal radial and dorsalis pedis pulses bilaterally. No cyanosis. BACK: There is tenderness with muscle spasm in the right trapezius muscle. Some radiating tenderness over the anterior and posterior shoulder as well. No signs of trauma. No cervical, thoracic, lumbar midline tenderness. No saddle anesthesia, normal distal neurovascular exam. Moves all extremities in full range of motion. NEUROLOGICAL: Alert and oriented x3. Normal speech. Cranial nerves II through XII grossly intact. Strength 5/5 in all extremities. PSYCH: Patient speaks rapidly and anxiously but otherwise unremarkable SKIN: Warm, dry, normal turgor. No rashes or lesions noted. Course - Re-evaluation Re-evalutation: Blood pressure in the 200s systolic on initial evaluation but she denies headache. Right sided pain along the chest is actually mainly over the shoulder and neck, there is painful tight musculature consistent with muscle spasm in the right trapezius muscle as well. Range of motion is still intact. No signs of trauma, no neurological deficits. Chest x-ray unremarkable, troponin negative, EKG unremarkable, patient has had multiple work-ups for a variety of symptoms within the past several days. Very low suspicion of acute intrathoracic etiology. Patient is complaining of constipation but x-ray is actually somewhat unremarkable in regards to this. CBC shows elevated lymphocytes otherwise unremarkable. Chemistry unremarkable. Remaining work-up unremarkable. Reevaluated patient. She is feeling in proved in regards to her reflux complaints after the Carafate and is feeling improved in regards to her shoulder after Valium. Blood pressure is also significantly improved down into the 17 0s. There does appear to be an anxiety component, patient talks nonstop about a variety of symptoms and history. Patient is consistently hypertensive and is currently undergoing medication adjustments with her primary care, she has appointments tomorrow and the next day reportedly. Discussed details of work- up, patient is requesting tested for COVID-19 again, this was performed after discussing options. Discussed follow-up and return precautions. Patient states understanding and agreement. Stable and well-appearing at time of discharge. - Vital Signs Vital signs: Temp Pulse Resp BP Pulse Ox 98.0 F 78 18 172/128 H 100 05/26/20 01:30 05/26/20 01:30 05/26/20 01:30 05/26/20 04:31 05/26/20 01:30 - Laboratory Results Result Diagrams: 05/26/20 03:06 05/26/20 03:06 Laboratory Results Interpreted: 05/26/20 05/26/20 03:06 03:06 Seg Neuts % (Manual) 41 L Lymphocytes % (Manual) 47 H Carbon Dioxide 32 H Critical Laboratory Results Reviewed: No Critical Results - Radiology Results Critical Radiology Results Reviewed: No Critical Results - EKG Interpretation by Me Additional EKG results interpreted by me: EKG shows sinus rhythm at a rate of 69, QTc 433, normal axis based on vectors but left ventricular hypertrophy based on amplitude. No T wave inversions or ST segment changes in consecutive leads. Discharge - Discharge Clinical Impression: Neck pain, Right-sided chest pain, Reflux gastritis, Essential hypertension Condition: Stable Disposition: HOME, SELF-CARE Instructions: COVID-19 Guidance for Persons Under Investigation Additional Instructions: Your work-up is reassuring, your evaluation indicates muscle spasm and you are right trapezius muscles, apply heat to the area, take the prescribed medication if needed using the precautions, perform gentle massage and stretches. This should simply go away with time. You have been prescribed Carafate to help with your reflux symptoms as well. Follow-up with your provider for additional management including continued endocrinology evaluation and blood pressure management. You have been tested for COVID-19, you will be contacted with your results, please quarantine while you are awaiting these. You will be provided additional instructions with your results. Return for any concerning symptoms including severe worsening pain, passing out, fever, vomiting, or any other concerning symptoms. Prescriptions: Sucralfate [Carafate 1 gm Tablet] 1 gm PO QID #20 tablet Diazepam [Valium 5 mg Tablet] 1 - 2 tab PO TID PRN #10 tablet PRN Reason: Referrals: ROSSY RODRIGUEZ PA-C [Primary Care Provider] - Follow up as needed
--- OUTSIDE RECORDS SUMMARY | 2020-05-26 02:42 | XMS REPORT ---
:1980 Author Organization [facility] [place] [address] [place] [address] Care Team Providers Name Role Phone EVELIN BLANCA Martínez Primary Care Physician Unavailable Anni Lentz Attending Clinician [phone] Manav Gautam Attending Clinician [phone] YAO VALADEZ Attending Clinician Unavailable Allergies, Adverse Reactions, Alerts This patient has no known allergies or adverse reactions. Medications This patient has no known medications. Problems This patient has no known problems. Procedures This patient has no known procedures. Results Test Description Test Time Test Comments Text Results Atomic Results Result Comments SARS-CoV-2 RNA Resp Ql SAMEER+probe 2020-05-11 00:00:00 Test Item Value Reference Range Comments SARS-CoV-2 RNA Resp Ql SAMEER+probe Not detected [facility] Case ID: (test code = [id number]) [id number] Encounters Start End Encounter Admission Attending Care Care Encounter Date/Time Date/Time Type Type Clinicians Facility Department ID 2019-12-21 2019-12-21 Outpatient Coty Lentz [id number] 10:30:00 [facility]07 2019-12-07 Outpatient Coty Lentz [id number] 14:16:00 14:16:00 [facility] 2019-11-23 2019-11-23 Outpatient Manav Ansari [id number] 11:16:00 11:16:00 [facility] 2017-06-27 2017-06-27 Outpatient HENRI VALADEZ [facility] [id number] 00:00:00 00:00:00 2017-05-16 2017-05-16 Outpatient HENRI [facility] [id number] 00:00:00 00:00:00 _[id number] 2017-03-21 2017-03-21 Outpatient [facility] [id number] 00:00:00 00:00:00 OSMAR _[id number] 2017-03-20 Outpatient [facility]GE, [facility] [id number] 00:00:00 00:00:00 OSMAR _[id number] 2017-03-05 Outpatient EL [facility] [id number] 00:00:00 00:00:00 _[id number] 2017-02-26 Outpatient EL [facility] [id number] 00:00:00 00:00:00 _[id number] 2017-01-09 Outpatient EL [facility] [id number] 00:00:00 00:00:00 _[id number] 2017-01-08 Outpatient [facility]GE, [facility] [id number] 00:00:00 00:00:00 Social History Social History Observation Description Sex Female Vital Signs This patient has no known vital signs. Hospital Discharge Instructions No InformationNo InformationNo Information
[2020-05-26] MEDS ORDERED: DIAZEPAM 5 MG TABLET PO ONE (02:54)
[2020-05-26] MEDS ORDERED: SUCRALFATE 1 GM TABLET PO ONE (02:54)
[2020-05-26 03:20] LABS: HEMATOCRIT 40.2 % (36.0-47.0); HEMOGLOBIN 13.6 g/dL (12.0-15.5); MEAN CORPUSCULAR HEMOGLOBIN 30.1 pg (27.0-33.4); MEAN CORPUSCULAR HGB CONC 33.9 g/dL (32.0-36.0); MEAN CORPUSCULAR VOLUME 89 fl (80-97); PLATELET COUNT 231 10^3/uL (150-450); RED BLOOD COUNT 4.52 10^6/uL (3.72-5.28); RED CELL DISTRIBUTION WIDTH 13.6 % (11.5-14.0); WHITE BLOOD COUNT 5.3 10^3/uL (4.0-10.5)
[2020-05-26 03:37] LABS: ALBUMIN 4.6 g/dL (3.5-5.0); ALKALINE PHOSPHATASE 73 U/L (38-126); ANION GAP 8 (5-19); ASPARTATE AMINO TRANSFERASE 33 U/L (14-36); BILIRUBIN,DIRECT 0.4 mg/dL (0.0-0.4); BILIRUBIN,TOTAL 0.8 mg/dL (0.2-1.3); BLOOD UREA NITROGEN 15 mg/dL (7-20); CALCIUM 9.7 mg/dL (8.4-10.2); CARBON DIOXIDE 32 mmol/L (22-30); CHLORIDE 102 mmol/L (98-107); GLUCOSE 91 mg/dL (75-110); TOTAL PROTEIN 8.1 g/dL (6.3-8.2)
--- NOTE | 2020-05-26 03:55 | RADIOLOGY REPORT (SQ) ---
EXAM DESCRIPTION: XR CHEST 1 VIEW COMPLETED DATE/TME: 05/26/2020 03:14 CLINICAL HISTORY: 40 years, Female, right sided chest pain COMPARISON: 05/21/2020 chest NUMBER OF VIEWS: 1 TECHNIQUE: Portable chest LIMITATIONS: None. FINDINGS: Heart size normal. Lungs clear. No pneumothorax IMPRESSION: Negative chest copyright 2011 [employer]- All Rights Reserved
--- NOTE | 2020-05-26 03:56 | RADIOLOGY REPORT (SQ) ---
ABDOMINAL RADIOGRAPH: 05/26/2020 2:54 AM ARTISTIC DIRECTOR COMPARISON: Abdominal radiograph performed 06/23/2019 TECHNIQUE: A single radiograph of the abdomen was obtained. HISTORY: 40-year old with abdominal pain, bloating. FINDINGS: Only the lower abdomen was included on this examination. The visualized bowel gas pattern is nonspecific and nonobstructive. No abnormal intra-abdominal calcifications are seen. There are no findings to suggest organomegaly. There are calcified phleboliths within the lower pelvis. The lung bases were not fully included on this examination. IMPRESSION: The bowel gas pattern is nonobstructive and nonspecific.
[2020-05-26 04:00] LABS: ABSOLUTE LYMPHOCYTES# (MANUAL) 2.6 10^3/uL (0.5-4.7); ABSOLUTE MONOCYTES # (MANUAL) 0.3 10^3/uL (0.1-1.4); BASOPHILS % (MANUAL) 0 % (0-2); EOSINOPHILS % (MANUAL) 5 % (0-6); LYMPHOCYTES % (MANUAL) 47 % (13-45); MONOCYTES % (MANUAL) 5 % (3-13); SEGMENTED NEUTROPHILS % (MAN) 41 % (42-78); TOTAL CELLS COUNTED 100
[2020-05-26 04:01] LABS: OVALOCYTES SLIGHT; PLATELET COMMENT ADEQUATE; POIKILOCYTOSIS SLIGHT; TOXIC GRANULATION 1+; TOXIC VACUOLATION PRESENT
[2020-05-26 04:40] VITALS: BP 172/128
--- NOTE | 2020-05-26 07:21 | EKG REPORT ---
SEVERITY:- ABNORMAL ECG - SINUS RHYTHM LEFT VENTRICULAR HYPERTROPHY : Confirmed by: Ney Malik MD 26-May-2020 07:20:29
== END 2020-05-26 05:00 | disposition home or self-care (01) ==
LOC: ER 01:10
DX: K29.60 Other gastritis without bleeding (principal); R55 Syncope and collapse; R06.02 Shortness of breath; M54.2 Cervicalgia; R07.9 Chest pain, unspecified; Z20.822 Contact with and (suspected) exposure to COVID-19; I10 Essential (primary) hypertension; Z91.040 Latex allergy status; Z88.6 Allergy status to analgesic agent; Z88.0 Allergy status to penicillin
CPT/HCPCS: 93005; 99285; 36415; 83690; 84703; 85025; 87635; 80053; 84484; 71045; 74018; 93010; C9803